=== PATIENT | male | born 1955 | race Caucasian/White ===

== ENCOUNTER 2018-12-12 23:13 | Inpatient (IN) ==
[2018-12-12] MEDS ORDERED: ZOFRAN IV ONE (23:43)
[2018-12-12] MEDS ORDERED: NS 1,000 ML IV ONE ×2 (23:43)
[2018-12-13] MEDS ORDERED: CARDIZEM IV ONE (00:17)
[2018-12-13] MEDS ORDERED: LOPRESSOR IV ONE (00:23)
[2018-12-13 00:30] LABS: BASO# 0.04 X1000 (0.0-0.2); BASO% 0.5 % (0.0-0.8); HEMATOCRIT 44.3 % (42.0-52.0); HEMOGLOBIN 15.7 g/dL (14.0-18.0); IMM GRAN# 0.02 X1000 (0.0-0.04); IMM GRAN% 0.3 % (0.0-0.5); LYMPH# 0.67 X1000 (1.2-3.4); LYMPH% 8.5 % (20.5-51.1); MCH 34.7 PG (27-31); MCHC 35.4 g/dL (33-37); MONO# 0.84 X1000 (0.11-0.59); MONO% 10.6 % (1.7-9.3); MPV 11.1 FL (7.4-10.4); NEUT# 6.35 X1000 (1.4-6.5); NEUT% 80.1 % (42.2-75.2); PLT 141 X1000 (130-400); RBC 4.52 XMIL (4.7-6.1); RDW 12.1 % (11.5-14.5); WBC 7.92 X1000 (4.8-10.8)
[2018-12-13] MEDS ORDERED: MORPHINE IV ONE (00:31)
[2018-12-13] MEDS ORDERED: REGLAN IV ONE (00:37)
[2018-12-13] MEDS ORDERED: MORPHINE ONE (00:41)
[2018-12-13 01:30] LABS: AGAP 33; ALB/GLOB RATIO 1.5; ALBUMIN 4.9 g/dL (3.5-5.0); ALKALINE PHOSPHATASE 164 U/L (32-122); BUN 12 mg/dL (8-22); CALCIUM 9.1 mg/dL (8.8-10.2); CHLORIDE 93 mmol/L (98-107); COSMO 277; CREATININE 0.9 mg/dL (0.7-1.2); ESTIMATED GFR > 60; GLUCOSE 190 mg/dL (70-104); GOT 131 U/L (10-34); GPT 83 U/L (10-44); LIPASE 1530 U/L (13-60); POTASSIUM 3.5 mmol/L (3.5-5.1); SODIUM 136 mmol/L (136-145); TCO2 10 mmol/L (25-35); TOTAL BILIRUBIN 2.47 mg/dL (0.20-1.00); TOTAL PROTEIN 8.1 g/dL (6.3-8.3)
--- NOTE | 2018-12-13 03:10 | PROVIDER DOCUMENTATION ---
This chart was entered by Rajeev Reid Scribe, acting as scribe for Jhonny Vail MD. HPI-Abdominal Pain/GI Problem - General Chief Complaint: Abdominal Pain Stated Complaint: NAUSEA/VOMITING Time Seen by Provider: 12/12/18 23:33 Source: patient Allergies/Adverse Reactions: Patient Allergies Allergy/AdvReac Type Severity Reaction Status Date / Time No Known Allergies Allergy Verified 03/19/17 18:49 Home Medications: Home Medication List Medication Instructions Recorded Confirmed Last Taken Type Aspirin/Acetaminophen [Goody's 1 each PO PRN PRN 03/20/17 03/20/17 03/18/17 06:00 History Body Pain Powder Pkt] Omeprazole [Prilosec] 40 mg PO AC #30 capsule. 03/20/17 Unknown Rx Levetiracetam [Keppra] 750 mg PO BID #60 tab 11/07/18 Unknown Rx Metoprolol Tartrate 25 mg PO DAILY PRN #30 tab 11/07/18 Unknown Rx - History of Present Illness-ABD Nature of Presenting Problems: Pt is a 62 y/o M presents to the ED with abdominal pain for 3 days with N/V for 2 days. He reports he feels his heart racing with some SOB and cough. Pt reports he was her in the ED for his heart racing 2 weeks ago and a seizure. Abdominal Pain Onset Location: reports: generalized abdomen Pain Radiation: reports: no radiation Quality of Pain: reports: cramping Severity in ED: reports: moderate, severe Onset/Duration: reports: 3 days ago Timing: reports: still present, intermittent Activities at Onset: reports: none Exposure to sick contacts?: No Modifying Factors: improves with: nothing Associated Symptoms: reports: cough, nausea, shortness of breath, vomiting. denies: chest pain, diaphoresis, diarrhea, fever/chills, genitourinary problems, sinus congestion/drainage, trouble walking Review of Systems - Adult - REVIEW OF SYSTEMS - ADULT Constitutional: denies: chills, fever Eyes: reports: no symptoms reported Ears, Nose, Mouth & Throat: reports: no symptoms reported Cardiovascular: reports: palpitations. denies: chest pain, edema Respiratory: reports: cough, shortness of breath Gastrointestinal: reports: abdominal pain, nausea, vomiting. denies: diarrhea Genitourinary: denies: dysuria, discharge Musculoskeletal: denies: back pain, neck pain Integumentary: reports: no symptoms reported Neurological: denies: dizziness/vertigo, headache/migraines Psychiatric: denies: anxiety, anti-depressant use Endocrine: reports: no symptoms reported Hematologic/Lymphatic: reports: no symptoms reported Allergic/Immunologic: reports: no symptoms reported All Other Systems: Reviewed and Negative Past History - Adult - PAST MEDICAL HISTORY-ADULT Review of Records: reports: Old Records Reviewed, Nursing Assessment Review, Medications Reviewed Major Childhood Illnesses: reports: denies history Cardiovascular: reports: denies history Respiratory: reports: denies history Gastrointestinal: reports: denies history Genitourinary: reports: denies history Musculoskeletal: reports: denies history Neurological: reports: Seizures/Epilepsy Psychiatric: reports: anxiety Endocrine/Immune: reports: denies history Other Conditions: reports: denies history - PRIOR SURGERIES/PROCEDURES Surgical/Procedure History: reports: orthopedic (extremity) - IMMUNIZATION STATUS Childhood Immunizations: See Nurse Assessment Flu Vaccine: See Nurse Assessment - FAMILY HISTORY Family History: reviewed, not pertinent - SOCIAL HISTORY Smoking: non-smoker, quit greater than 1 year Substance Use: alcohol Alcohol Use Frequency: occasionally Living Situation: family Physical Exam-General - PHYSICAL EXAM-ADULT Initial Vital Signs Reviewed: Yes - CONSTITUTIONAL General Appearance: alert, no apparent distress - EYES Eyes: PERRL/EOMI, pink conjunctivae - HEAD, EARS, NOSE, MOUTH & THROAT HENMT: moist mucous membranes, normal ENT inspection, pharynx normal - NECK Neck: non-tender, full range of motion, supple, normal inspection - RESPIRATORY Respiratory: lungs clear, normal breath sounds, no pleuratic chest pain, no respiratory distress, no accessory muscle use - CARDIOVASCULAR Cardiovascular: normal peripheral pulses, tachycardia - GASTROINTESTINAL (ABDOMEN) Abdominal Exam: normal bowel sounds, soft, tenderness (diffuse) - MUSCULOSKELETAL Back Exam: normal inspection, no CVA tenderness, no vertebral tenderness Extremity: normal range of motion, non-tender, normal gait, normal inspection, no pedal edema - SKIN Integumentary: normal color, normal turgor, warm/dry - NEUROLOGIC Neurologic: grossly normal, no motor/sensory deficits - PSYCHIATRIC Psych/Mental Status: normal mood/affect, normal thought content, normal thought process, oriented x 3 Progress - PLAN OF CARE/RESULTS Result Diagrams: 12/12/18 23:52 12/12/18 23:52 - EKG 1 Time of EKG reading by physician:: 00:12 EKG Read and Signed by:: Jhonny Vail EKG Interpretation (*Must complete 3 of following elements*): Abnormal Rate: 154 Rhythm: supraventricular tachycardia with frquent PVC Comments: Nonspecific ST abnormality - XRAY 1 XRAY Study: Chest Impression: Abnormal (elevated left hemidiaphram) Departure - Departure Date of Disposition Decision: 12/13/18 Time of Disposition Decision: 03:09 DIAGNOSIS: Pancreatitis, acute Qualifiers: Pancreatitis type: unspecified pancreatitis type Acute pancreatitis complication: unspecified Qualified Code(s): K85.90 - Acute pancreatitis without necrosis or infection, unspecified Disposition: ADMITTED INPATIENT 09 Certified Medical Emergency: Emergent Condition: Stable Referrals and Follow-Ups: None,PCP [Primary Care Provider] - - Critical Care Note This patient required my direct & personal management of CC.: No Attestation - Physician/ JOSE R Attestation Patient care was provided by Advanced Practice Provider:: No The physician spent face to face time with patient:: Yes Advanced Practice Provider documentation review:: Supervising physician onsite and consulted in the evaluation and care of this patient. The physician did have a face to face encounter with the patient. This chart was documented by the indicated scribe, (Rajeev Reid Scribe) and accurately reflects the services I performed and decisions made by me, Jhonny Vail MD, as attested by the provider's signature.
[2018-12-13] MEDS ORDERED: DILAUDID IV ONE (03:13)
[2018-12-13] MEDS ORDERED: NS 1,000 ML ONE (03:30)
[2018-12-13] MEDS ORDERED: NS 1,000 ML IV ONE (03:32)
[2018-12-13] MEDS ORDERED: ATIVAN IV ONE (03:49)
[2018-12-13] MEDS ORDERED: SODIUM CHLORIDE 0.9% INJ ONE ×2 (03:49→04:52)
[2018-12-13] MEDS ORDERED: PROTONIX IV ONE (03:49)
[2018-12-13] MEDS ORDERED: LOPRESSOR PO ONE (03:49)
[2018-12-13] MEDS ORDERED: LIBRIUM PO ONE (03:49)
[2018-12-13] MEDS ORDERED: KLOR-CON PO ONE (03:56)
[2018-12-13] MEDS ORDERED: TYLENOL PO PRN (04:52)
[2018-12-13] MEDS: LOVENOX SUBQ SCH (04:52)
[2018-12-13] MEDS ORDERED: ZOFRAN IV PRN (04:52)
[2018-12-13] MEDS: SODIUM CHLORIDE 0.9% INJ SCH (05:00)
[2018-12-13] MEDS: PROTONIX IV SCH (05:00)
--- NOTE | 2018-12-13 05:07 | HISTORY AND PHYSICAL ---
PRIMARY CARE PHYSICIAN: No documented primary care physician. REASON FOR ADMISSION: Shortness of breath and palpitations last night and 1-week history of worsening abdominal pain, nausea and vomiting. HISTORY OF PRESENT ILLNESS: Mr. Raghav Ramirez is a 62-year-old male with past medical history of seizures (type unknown), and prior history of food impaction. He comes in today complaining of a 1-week history of burning abdominal pain. He said it initially intermittent, radiating to his back, but over the last couple of days it has been constant. There has been associated vomiting, about 3 times a day on average. Yesterday he said that he was vomiting coffee grounds, but no surinder blood. He came in primarily because he thought his heart was racing and he could not breathe, and felt he "was having a heart attack." On arrival his heart rate was in the 150s. He was given fluids, Cardizem and metoprolol and his heart rate is in the "one teens," between 100 to 115. He has also been given some pain medication and nausea medication and says he feels is breathing and palpitations have improved. Denies any chest pain during this. He did feel a little lightheaded and a little diaphoretic when this occurred. The patient denies any fever or chills, no genitourinary complaints, no polyuria or polydipsia. No arthralgia or rash. No focal neurological complaints. No weight loss. He reports that his last drink was just under a week ago and says his oral intake has significantly diminished over the last couple of days. He says this is primarily due to the fact that whenever he tries to drink or eat he throws up. The aforementioned pain had no modifying factors. REVIEW OF SYSTEMS: A 12-systems review was performed; positive findings noted in the HPI. ALLERGIES: No known documented allergies. MEDICATIONS: Keppra 750 mg b.i.d., metoprolol 25 mg, omeprazole 40 mg a day, aspirin and Tylenol 1 p.r.n. FAMILY HISTORY: Negative for heart disease, diabetes or epilepsy. SOCIAL HISTORY: He usually drinks about 6 beers a day. Lives with his girlfriend. No smoking or illicit drug use. SURGICAL HISTORY: Had left elbow ORIF. DATA: White count 7000, hemoglobin 15, hematocrit 44, platelets 141,000, 80% neutrophils. Potassium is 3.5, BUN 12, creatinine 0.9, glucose 190. Total bilirubin is 2.4, up from 1.5. AST 131, ALT 83, alkaline phosphatase 164. Troponin is negative. Lactate is 2.7, lipase is 1500. CT scan of the abdomen and pelvis confirms acute inflammatory changes of the pancreas. Chest film: Slightly raised left hemidiaphragm, borderline cardiomegaly, poor inspiratory effort. EKG shows SVT with frequent PVCs. PHYSICAL EXAMINATION: GENERAL APPEARANCE: Middle-aged man who is not in acute distress. He alert and oriented x3 with normal mood and affect. HEAD AND EYES: Head is normocephalic, atraumatic. Eyes: PERRLA, EOMI. He is not icteric and not pale. VITAL SIGNS: Blood pressure is 115/110, pulse 109, respirations 20, temperature 97.9. His O2 saturation ENT: Oropharyngeal exam is grossly normal except for mild xerostomia. No pharyngeal exudates. There is some cyanosis. NECK: Supple. No JVD, carotid bruits or thyromegaly. CHEST: Clear when auscultated with good air entry in both lung mena. CARDIOVASCULAR: First and second heart sounds heard. No gallops, murmurs or rubs. Rhythm is regular. ABDOMEN: Full, soft with epigastric tenderness, but no peritoneal signs. Bowel sounds are slightly hypoactive. RECTAL: Exam is deferred. EXTREMITIES: The patient has fine tremors when his hands are outstretched. Decreased pulse volumes in all extremities. Rhythm is regular, symmetrical. No edema, clubbing or peripheral cyanosis. NEUROLOGIC: No gross focal deficits. SKIN: Intact with no breakdown, lesion or erythema. MUSCULAR: Grossly normal. ASSESSMENT: 1. Alcoholic pancreatitis. 2. Seizure disorder probably related to alcohol withdrawal. 3. Alcoholic liver disease. 4. Supraventricular tachycardia secondary to probable volume depletion, electrolyte derangement and beta jihan withdrawal. PLAN: The patient will be aggressively hydrated due to decreased intravascular volume. Will treat the patient symptomatically regarding his pain and vomiting. IV PPIs will be administered on account of coffee ground emesis for presumed acute gastritis. Patient's beta blockers will be instated on account of SVTs. Electrolytes will also be replaced. The patient will be treated with thiamine daily. Serial lipase levels to be drawn and correlated with clinical picture. Alcohol cessation was reiterated and I explained the fact that all his symptomatology could be related to his alcohol abuse. The patient will be on p.r.n. Ativan and we need to watch closely for DTs, although the patient emphatically states that his last drink was a week ago, even though he is mildly tremulous. He also denies any hallucinations. If the patient's tremors worsen, he will probably need to be on a scheduled Librium dosing. DVT prophylaxis will also be instituted. cc: Oscar Garza MD
[2018-12-13] MEDS ORDERED: SODIUM CHLORIDE 0.9% INJ SCH (05:30)
[2018-12-13 05:34] LABS: MAGNESIUM 2.2 mg/dL (1.5-2.7); PHOSPHORUS 3.5 mg/dL (2.7-4.5)
[2018-12-13] MEDS: THIAMINE 100 MG in NS 50 ML IV SCH ×2 (06:30→09:00)
[2018-12-13] MEDS: POTASSIUM CHLORIDE 10 MEQ in NS 1,000 ML IV SCH ×3 (06:49→15:53)
[2018-12-13] MEDS: DILAUDID IV PRN ×4 (06:50→20:17)
[2018-12-13] MEDS: COMPAZINE IV PRN ×2 (06:51→12:30)
[2018-12-13] MEDS: ATIVAN IV PRN ×4 (06:51→20:17)
--- NOTE | 2018-12-13 07:01 | Diag Imaging Result Doc PS360 ---
EXAM: CHEST-1 VIEW 12/12/2018 HISTORY: sob TECHNIQUE: AP portable at 1259 COMMENT: There is subsegmental atelectasis in the left base which has improved slightly since 11/07/2018. The left hemidiaphragm is still elevated. IMPRESSION: Atelectasis on the left. Electronically signed by Carlos Alberto Coates 12/13/2018 6:58 AM
[2018-12-13 07:53] LABS: BASO# 0.01 X1000 (0.0-0.2); BASO% 0.2 % (0.0-0.8); HEMATOCRIT 42.5 % (42.0-52.0); HEMOGLOBIN 14.1 g/dL (14.0-18.0); IMM GRAN# 0.02 X1000 (0.0-0.04); IMM GRAN% 0.4 % (0.0-0.5); LYMPH# 0.46 X1000 (1.2-3.4); LYMPH% 9.1 % (20.5-51.1); MCH 33.8 PG (27-31); MCHC 33.2 g/dL (33-37); MCV 101.9 FL (81-99); MONO# 0.43 X1000 (0.11-0.59); MONO% 8.5 % (1.7-9.3); MPV 9.9 FL (7.4-10.4); NEUT# 4.13 X1000 (1.4-6.5); NEUT% 81.8 % (42.2-75.2); PLT 99 X1000 (130-400); RBC 4.17 XMIL (4.7-6.1); RDW 12.1 % (11.5-14.5); WBC 5.05 X1000 (4.8-10.8)
--- NOTE | 2018-12-13 07:57 | EKG Report ---
Test Performed on : 12/13/2018 00:12:06 AM Test Reason : tachycardia Blood Pressure : / mmHG Vent. Rate : 154 BPM Atrial Rate : 153 BPM P-R Int : 000 ms QRS Dur : 078 ms QT Int : 316 ms P-R-T Axes : 000 007 046 degrees QTc Int : 506 ms Supraventricular tachycardia. with frequent premature ventricular complexes. Nonspecific ST abnormality Abnormal ECG When compared with ECG of 07-NOV-2018 13:28, (Unconfirmed) Vent. rate has increased BY 51 BPM Unconfirmed Result
[2018-12-13 08:10] LABS: AGAP 21; ALB/GLOB RATIO 1.4; ALBUMIN 3.8 g/dL (3.5-5.0); ALKALINE PHOSPHATASE 123 U/L (32-122); BUN 9 mg/dL (8-22); CALCIUM 8.1 mg/dL (8.8-10.2); CHLORIDE 104 mmol/L (98-107); COSMO 283; CREATININE 0.7 mg/dL (0.7-1.2); ESTIMATED GFR > 60; GLUCOSE 147 mg/dL (70-104); GOT 82 U/L (10-34); GPT 58 U/L (10-44); POTASSIUM 3.6 mmol/L (3.5-5.1); SODIUM 141 mmol/L (136-145); TCO2 16 mmol/L (25-35); TOTAL BILIRUBIN 2.57 mg/dL (0.20-1.00); TOTAL PROTEIN 6.6 g/dL (6.3-8.3)
--- NOTE | 2018-12-13 08:27 | Diag Imaging Result Doc PS360 ---
EXAM: CT ABD/PELVIS W/IV CONT ONLY INDICATION: colitis TECHNIQUE: This exam was performed using automated exposure control, adjustment of mA or kV according to patient size, and/or use of iterative reconstruction technique. COMPARISON: None. FINDINGS: There is elevation of the left hemidiaphragm and there is associated atelectasis at the left lung base. There is a 4 mm noncalcified nodule in the right lower lobe, statistically most likely a noncalcified granuloma. The distal esophageal wall is thickened circumferentially there are a couple of subcentimeter adjacent shotty lymph nodes. This probably represents esophagitis. However, malignancy cannot completely be excluded. Consider evaluation with EGD. There are calcified granulomata throughout the spleen. There is severe hepatic steatosis. There is a 1.1 cm enhancing nodule in the left hepatic lobe on image 49 of series 3 that very likely represents a flash filling hemangioma as it mirrors the enhancement of the portal vein. The gallbladder is unremarkable. There is no evidence of biliary dilatation. There is extensive inflammatory stranding surrounding the pancreas consistent with acute pancreatitis. There is no loculated fluid to indicate peripancreatic abscess. There is nothing to suggest pancreatic necrosis. There is no portal vein or splenic vein thrombosis. There is no pseudocyst. The adrenal glands, kidneys, and urinary bladder are grossly unremarkable. The appendix is normal. The remainder of the GI tract is grossly unremarkable. IMPRESSION: 1.Acute pancreatitis. 2.Mild thickening of the distal esophageal wall that probably represents esophagitis. Please see the above discussion. 3.Severe hepatic steatosis with a 1.1 cm left hepatic lobe enhancing nodule that very likely represents a flash filling hemangioma. Electronically signed by Caio Finnegan 12/13/2018 8:24 AM
[2018-12-13] MEDS: LOPRESSOR PO SCH ×2 (09:00→20:10)
[2018-12-13] MEDS: KEPPRA PO SCH ×2 (09:00→20:10)
[2018-12-14] MEDS: POTASSIUM CHLORIDE 10 MEQ in NS 1,000 ML IV SCH ×3 (00:25→15:29)
[2018-12-14] MEDS: ATIVAN IV PRN (00:37)
[2018-12-14] MEDS: DILAUDID IV PRN ×8 (00:37→22:07)
[2018-12-14] MEDS: SODIUM CHLORIDE 0.9% INJ SCH (04:13)
[2018-12-14] MEDS: PROTONIX IV SCH (04:13)
[2018-12-14] MEDS: LOVENOX SUBQ SCH (04:14)
--- NOTE | 2018-12-14 07:32 | EKG Report ---
Test Performed on : 12/13/2018 8:47:29 PM Test Reason : Rhythm change Blood Pressure : / mmHG Vent. Rate : 128 BPM Atrial Rate : 128 BPM P-R Int : 120 ms QRS Dur : 074 ms QT Int : 386 ms P-R-T Axes : 000 001 028 degrees QTc Int : 563 ms Sinus tachycardia. Nonspecific ST and T wave abnormality Abnormal ECG When compared with ECG of 13-DEC-2018 00:12, (Unconfirmed) premature ventricular complexes. are no longer present Unconfirmed Result
[2018-12-14] MEDS: KEPPRA PO SCH ×2 (08:31→20:11)
[2018-12-14] MEDS: THIAMINE 100 MG in NS 50 ML IV SCH (08:31)
[2018-12-14] MEDS: LOPRESSOR PO SCH ×2 (08:32→20:11)
[2018-12-14] MEDS: COMPAZINE IV PRN ×2 (12:56→20:11)
[2018-12-14] MEDS ORDERED: NS 1,000 ML IV SCH (13:15)
--- NOTE | 2018-12-14 13:51 | PROGRESS NOTE ---
DATE: 12/14/2018 SUBJECTIVE: The patient is resting comfortably in bed. OBJECTIVE: Vital signs: Vital signs are as follows: Temperature 98.9 degrees, pulse 113, respirations 18, blood pressure is 130/102, oxygenation is 95%. HEENT: Atraumatic, normocephalic. Cardiovascular system: S1, S2. Respiratory system: Has evidence of good air entry bilaterally. Abdomen: Soft. No significant tenderness noted. No masses felt. Extremities: No evidence of edema. Central nervous system: No obvious neurologic focal deficit noted. LABS: Labs are as follows: Lipase level is 514. ASSESSMENT AND PLAN: 1. Acute pancreatitis. Maintain patient on nothing by mouth, except for clear liquids. Maintain him on antiemetics, as well as analgesic agent. Also, place him on proton pump inhibitor. Continue to follow up on the patient's clinical progression, advance diet as needed. 2. Alcoholism. Maintain patient on delirium tremens prophylaxis. Place him on thiamine folic acid, as well as multivitamin. Check magnesium and phosphorus level. Replace those if needed. Check CPK level as well. 3. Alcoholic liver disease. Follow up on patient's liver function test. We will also check a hepatitis panel, as well as abdominal ultrasound. 4. Supraventricular tachycardia. Correct electrolyte abnormalities. Follow up on serial enzymes. Maintain patient on rate-controlling agent. 5. Seizure disorder. Continue antiepileptic drug. Maintain patient on seizure precaution. 6. Deep vein thrombosis prophylaxis. Sequential compression devices. 7. Gastrointestinal prophylaxis. Proton pump inhibitor. cc: Suraj Porter MD
--- NOTE | 2018-12-14 16:32 | Diag Imaging Result Doc PS360 ---
EXAM: US ABDOMEN-COMPLETE 12/14/2018 HISTORY: ABN LFS TECHNIQUE: Abdominal ultrasound COMMENT: The study is somewhat suboptimal due to the patient's body habitus. The liver is hyperechoic. The gallbladder is clear and nontender. There is antegrade flow in the portal vein. The kidneys are without evidence of hydronephrosis or mass. The pancreas aorta and inferior vena cava are not well demonstrated. There is no evidence of biliary dilatation the common bile duct measuring 5 mm. The spleen is not visualized. IMPRESSION: Mild hepatic steatosis. Limited study. No evidence of acute disease. Electronically signed by Carlos Alberto Coates 12/14/2018 4:30 PM
[2018-12-14] MEDS: FOLIC ACID PO SCH (16:38)
[2018-12-14] MEDS: CENTRUM CHEWABLE PO SCH (16:38)
[2018-12-15] MEDS: ATIVAN IV PRN ×2 (00:16→02:54)
[2018-12-15] MEDS: DILAUDID IV PRN ×3 (00:58→20:59)
[2018-12-15] MEDS: POTASSIUM CHLORIDE 10 MEQ in NS 1,000 ML IV SCH ×3 (00:59→22:48)
[2018-12-15] MEDS ORDERED: ATIVAN IV ONE (03:00)
[2018-12-15] MEDS: PHENOBARBITAL IV PRN ×2 (03:45→07:04)
[2018-12-15 05:52] LABS: BASO# 0.01 X1000 (0.0-0.2); BASO% 0.1 % (0.0-0.8); EOS# 0.02 X1000 (0.0-0.7); EOS% 0.3 % (0.0-10.0); HEMATOCRIT 35.5 % (42.0-52.0); LYMPH% 17.4 % (20.5-51.1); MCH 33.7 PG (27-31); MCHC 33.8 g/dL (33-37); MCV 99.7 FL (81-99); MONO# 0.64 X1000 (0.11-0.59); MONO% 8.6 % (1.7-9.3); MPV 11.3 FL (7.4-10.4); NEUT# 5.51 X1000 (1.4-6.5); NEUT% 73.6 % (42.2-75.2); PLT 103 X1000 (130-400); RBC 3.56 XMIL (4.7-6.1); RDW 11.9 % (11.5-14.5); WBC 7.48 X1000 (4.8-10.8)
[2018-12-15] MEDS: LOVENOX SUBQ SCH (05:57)
[2018-12-15] MEDS: PROTONIX IV SCH (05:57)
[2018-12-15] MEDS: SODIUM CHLORIDE 0.9% INJ SCH (05:58)
[2018-12-15 06:38] LABS: AGAP 18; ALB/GLOB RATIO 1.2; ALBUMIN 3.5 g/dL (3.5-5.0); ALKALINE PHOSPHATASE 110 U/L (32-122); BUN 7 mg/dL (8-22); CALCIUM 8.8 mg/dL (8.8-10.2); CHLORIDE 102 mmol/L (98-107); COSMO 275; CREATININE 0.5 mg/dL (0.7-1.2); ESTIMATED GFR > 60; GLUCOSE 84 mg/dL (70-104); GOT 49 U/L (10-34); GPT 33 U/L (10-44); MAGNESIUM 1.9 mg/dL (1.5-2.7); PHOSPHORUS 1.1 mg/dL (2.7-4.5); POTASSIUM 2.9 mmol/L (3.5-5.1); SODIUM 139 mmol/L (136-145); TCO2 19 mmol/L (25-35); TOTAL BILIRUBIN 2.41 mg/dL (0.20-1.00); TOTAL PROTEIN 6.4 g/dL (6.3-8.3)
[2018-12-15] MEDS: KEPPRA PO SCH ×2 (09:05→20:58)
[2018-12-15] MEDS: LOPRESSOR PO SCH ×2 (09:05→20:58)
[2018-12-15] MEDS: THIAMINE 100 MG in NS 50 ML IV SCH (09:05)
[2018-12-15] MEDS: FOLIC ACID PO SCH (09:05)
[2018-12-15] MEDS: CENTRUM CHEWABLE PO SCH (09:06)
[2018-12-15] MEDS ORDERED: POTASSIUM CHLORIDE 60 MEQ in NS 500 ML IV ONE (15:30)
--- NOTE | 2018-12-15 15:30 | PROGRESS NOTE ---
DATE: 12/15/2018 INTERVAL HISTORY: The patient with no further vomiting. Occasional mild nausea. Tolerating occasional sips of water well so far. Still complaining of abdominal pain. Still some tachycardia but no tremulousness, hallucinations or other sign of worsening alcohol withdrawal. REVIEW OF SYSTEMS: Twelve -point review of systems negative except as interval history. LABS: WBC 7.4, hemoglobin 12, hematocrit 35.5, platelets 103,000, sodium 139, potassium 2.9, bicarb 19, BUN 7, creatinine 0.5, phosphorus 1.1, magnesium 1.9, total bilirubin 2.4, AST 49, ALT 33, alkaline phosphatase 110. Troponin negative x4, lipase 116, TSH 1.7. VITALS: T-max 99.7 degrees, pulse 103, respirations 17, blood pressure 137/97, O2 saturation 97% on room air. OBJECTIVE: General: No acute distress. Vitals as above. HEENT: Normocephalic, atraumatic. Moist mucous membranes, no cervical adenopathy . Cardiovascular: Minimally tachycardic but regular. No murmurs noted. Pulmonary: Clear to auscultation bilaterally. No wheeze, rales, rhonchi. Abdomen: Soft, nontender on exam, bowel sounds positive. Extremities: Peripheral pulses intact. No clubbing, cyanosis or edema . Neurologic: Cranial nerves grossly intact. No focal identified. No significant tremulousness at this point. Psychiatric: Normal mood and affect. Awake, alert, oriented x3. No hallucinations noted. Skin: No new rashes or lesions identified. ASSESSMENT AND PLAN: 1. Acute pancreatitis likely alcoholic. Lipase trending down. No further vomiting. Patient still complaining of pain but nontender at this point. Will advance diet and begin transitioning to p.o. pain medicines. Depending on how he does with liquids may be able to advance diet to solids tomorrow. 2. Alcoholic fatty liver disease, patient with severe fatty liver on imaging. No definite cirrhosis but given elevated bilirubin suspect that he has at least some cirrhosis . AST, ALT and alkaline phosphatase are trending down so some aspect of alcoholic hepatitis appears to be improving. Hepatitis panel pending. 3. Alcohol abuse and withdrawal. Patient with some intermittent frequent tachycardia but no other signs of major withdrawal. No hallucinations or severe tremulousness . 4. Hypokalemia, hypophosphatemia, will replete those and monitor. 5. Possible seizure disorder uncertain if patient has actual seizure disorder or has previously had seizures with alcohol withdrawal but will continue seizure medication. No seizure activity on this admission thus far. 6. Deep vein thrombosis prophylaxis SCDs. 7. Likely esophagitis. Patient with imaging findings concerning for esophagitis. Likely alcohol related. Patient with no hematemesis, hematochezia or melena. Has had slight decline in blood counts but may be related to fluids he is getting. Will likely need outpatient evaluation by GI at some point but if blood counts continue trend down or any sign of overt bleeding develops then will consult GI while he is here.
[2018-12-15] MEDS: NORCO-10 PO PRN (17:25)
[2018-12-15] MEDS: POTASSIUM PHOSPHATE 40 MMOL in NS 250 ML IV ONE ×2 (20:58→21:31)
[2018-12-16] MEDS: NORCO-10 PO PRN ×4 (00:21→19:28)
[2018-12-16] MEDS: DILAUDID IV PRN ×4 (01:44→20:44)
[2018-12-16] MEDS: PROTONIX IV SCH (05:13)
[2018-12-16] MEDS: LOVENOX SUBQ SCH (05:13)
[2018-12-16] MEDS: SODIUM CHLORIDE 0.9% INJ SCH (05:13)
[2018-12-16 05:32] LABS: BASO# 0.02 X1000 (0.0-0.2); BASO% 0.3 % (0.0-0.8); EOS# 0.11 X1000 (0.0-0.7); EOS% 1.6 % (0.0-10.0); HEMATOCRIT 34.8 % (42.0-52.0); HEMOGLOBIN 11.8 g/dL (14.0-18.0); IMM GRAN# 0.02 X1000 (0.0-0.04); IMM GRAN% 0.3 % (0.0-0.5); LYMPH# 1.24 X1000 (1.2-3.4); LYMPH% 17.8 % (20.5-51.1); MCH 33.9 PG (27-31); MCHC 33.9 g/dL (33-37); MONO# 0.93 X1000 (0.11-0.59); MONO% 13.4 % (1.7-9.3); MPV 10.6 FL (7.4-10.4); NEUT# 4.64 X1000 (1.4-6.5); NEUT% 66.6 % (42.2-75.2); PLT 146 X1000 (130-400); RBC 3.48 XMIL (4.7-6.1); RDW 12.2 % (11.5-14.5); WBC 6.96 X1000 (4.8-10.8)
[2018-12-16 05:53] LABS: AGAP 15; ALB/GLOB RATIO 1.1; ALBUMIN 3.3 g/dL (3.5-5.0); ALKALINE PHOSPHATASE 135 U/L (32-122); BUN 6 mg/dL (8-22); CALCIUM 8.4 mg/dL (8.8-10.2); CHLORIDE 102 mmol/L (98-107); COSMO 273; CREATININE 0.5 mg/dL (0.7-1.2); ESTIMATED GFR > 60; GLUCOSE 92 mg/dL (70-104); GOT 49 U/L (10-34); GPT 28 U/L (10-44); POTASSIUM 3.1 mmol/L (3.5-5.1); SODIUM 138 mmol/L (136-145); TCO2 21 mmol/L (25-35); TOTAL BILIRUBIN 1.57 mg/dL (0.20-1.00); TOTAL PROTEIN 6.3 g/dL (6.3-8.3)
[2018-12-16] MEDS: POTASSIUM CHLORIDE 10 MEQ in NS 1,000 ML IV SCH ×2 (07:27→19:47)
[2018-12-16] MEDS: KEPPRA PO SCH ×2 (09:24→20:43)
[2018-12-16] MEDS: FOLIC ACID PO SCH (09:24)
[2018-12-16] MEDS: LOPRESSOR PO SCH (09:24)
[2018-12-16] MEDS: CENTRUM CHEWABLE PO SCH (09:25)
[2018-12-16] MEDS: THIAMINE 100 MG in NS 50 ML IV SCH (09:25)
[2018-12-16 10:51] LABS: HEPATITIS PROFILE ACUTE SEE COMMENTS
--- NOTE | 2018-12-16 15:06 | PROGRESS NOTE ---
DATE: 12/16/2018 SUBJECTIVE: Patient resting comfortable in bed. Not in any obvious distress. OBJECTIVE: Vital signs: Temperature [*] pulse is 111, respiratory 18, blood pressure 122/87, oxygen 100%. HEENT: Atraumatic, normocephalic. Cardiovascular: S1, S2. Respiratory: Has evidence of good air entry bilaterally. Abdomen: Soft, nontender, no masses felt. Extremities: No evidence of edema. Central nervous system: No obvious focal deficit noted. LABORATORY DATA: WBCs 6.96, hematocrit is 34.8 with a platelet count of 146,000. Sodium is 138, potassium 3.1, chloride is 102, bicarb 21, BUN [*], creatinine 0.5. ASSESSMENT AND PLAN: 1. Acute pancreatitis. Continue current diet regimen. Maintain patient antiemetics as well as PPI. 2. Alcoholism. Maintain patient on delirium tremens prophylaxis, place him on thiamine, folic acid as well as multivitamin. Replace potassium and phosphorus level. 3. Alcoholic liver disease. Follow up on hepatic function test. 4. Supraventricular tachycardia this seems to have resolved. 5. Seizure disorder. Continue antiepileptic drug, maintain patient on seizure precaution. 6. Deep vein thrombosis prophylaxis SCD. 7. Gastrointestinal prophylaxis PPI. cc: Suraj Porter MD
[2018-12-16] MEDS: POTASSIUM CHLORIDE 20 MEQ/SWI 20 MEQ/100 ML IVPB IV SCH ×2 (17:54→20:10)
[2018-12-16] MEDS: NEUTRA-PHOS PO SCH ×2 (18:00→20:44)
[2018-12-17] MEDS: NORCO-10 PO PRN ×4 (01:31→18:57)
[2018-12-17] MEDS: DILAUDID IV PRN ×4 (02:33→20:53)
[2018-12-17] MEDS: ATIVAN IV PRN (02:33)
[2018-12-17] MEDS: POTASSIUM CHLORIDE 10 MEQ in NS 1,000 ML IV SCH ×2 (04:48→15:34)
[2018-12-17] MEDS: LOPRESSOR PO SCH ×3 (04:50→20:55)
[2018-12-17] MEDS: PROTONIX IV SCH (06:48)
[2018-12-17] MEDS: LOVENOX SUBQ SCH (06:48)
[2018-12-17] MEDS: SODIUM CHLORIDE 0.9% INJ SCH (06:49)
[2018-12-17 07:26] LABS: BASO# 0.02 X1000 (0.0-0.2); BASO% 0.4 % (0.0-0.8); EOS% 1.8 % (0.0-10.0); HEMATOCRIT 34.1 % (42.0-52.0); HEMOGLOBIN 11.5 g/dL (14.0-18.0); IMM GRAN# 0.03 X1000 (0.0-0.04); IMM GRAN% 0.5 % (0.0-0.5); LYMPH% 21.1 % (20.5-51.1); MCH 33.7 PG (27-31); MCHC 33.7 g/dL (33-37); MONO# 0.98 X1000 (0.11-0.59); MONO% 17.2 % (1.7-9.3); MPV 10.3 FL (7.4-10.4); NEUT# 3.37 X1000 (1.4-6.5); PLT 186 X1000 (130-400); RBC 3.41 XMIL (4.7-6.1); RDW 12.3 % (11.5-14.5)
[2018-12-17 07:43] LABS: AGAP 14; BUN 4 mg/dL (8-22); CALCIUM 8.6 mg/dL (8.8-10.2); CHLORIDE 101 mmol/L (98-107); COSMO 274; CREATININE 0.4 mg/dL (0.7-1.2); ESTIMATED GFR > 60; GLUCOSE 93 mg/dL (70-104); LIPASE 152 U/L (13-60); MAGNESIUM 1.9 mg/dL (1.5-2.7); PHOSPHORUS 1.7 mg/dL (2.7-4.5); POTASSIUM 3.1 mmol/L (3.5-5.1); SODIUM 139 mmol/L (136-145); TCO2 24 mmol/L (25-35)
[2018-12-17] MEDS: KEPPRA PO SCH ×2 (08:27→20:54)
[2018-12-17] MEDS: NEUTRA-PHOS PO SCH ×4 (08:27→20:54)
[2018-12-17] MEDS: THIAMINE 100 MG in NS 50 ML IV SCH (08:27)
[2018-12-17] MEDS: FOLIC ACID PO SCH (08:29)
[2018-12-17] MEDS: CENTRUM CHEWABLE PO SCH (09:30)
[2018-12-17] MEDS: POTASSIUM CHLORIDE 20 MEQ/SWI 20 MEQ/100 ML IVPB IV SCH ×2 (12:58→17:15)
--- NOTE | 2018-12-17 13:21 | PROGRESS NOTE ---
DATE: 12/17/2018 SUBJECTIVE: The patient resting comfortably in bed. Not in any obvious distress. OBJECTIVE: Vital signs: Temperature is 98.6 degrees, pulse is 93, respiratory rate 16, blood pressure is 134/94, oxygen saturation is 98%. HEENT: He is atraumatic, normocephalic. Cardiovascular: S1, S2. Respiratory system: Has evidence of good air entry bilaterally. Abdomen: Soft, nontender. No masses felt. Extremities: No evidence of edema. Central nervous system: No obvious focal deficits. LABORATORY DATA: WBC is 5.7, hematocrit is 34.1, with a platelet count of 186,000. Sodium is 139, potassium 3.1, chloride is 101, bicarb 24, BUN is 4, creatinine 0.4. Lipase level is 152. ASSESSMENT AND PLAN: 1. Acute pancreatitis. The patient's lipase levels seem to be showing an upward trend. Will scale done on his diet and put him back on a clear liquid diet. We will continue to maintain him on antiemetics as well as analgesic agent along with intravenous fluids and also proton pump inhibitor. We will follow up on pancreatic function test. 2. Alcoholism. Maintain him on delirium tremens prophylaxis. Continue thiamine, folic acid, as well as multivitamin. Replace electrolytes as needed, especially potassium as well as phosphorus levels. 3. Alcoholic liver disease. Follow up on liver function tests. The patient understands the importance of abstinence from alcohol. 4. Supraventricular tachycardia. Resolved. 5. Seizure disorder. Continue antiepileptic drugs as well as maintain the patient on seizure precaution. 6. Deep vein thrombosis prophylaxis. Sequential compression devices. 7. Gastrointestinal prophylaxis. Proton pump inhibitor. cc: Suraj Porter MD
[2018-12-17] MEDS ORDERED: VITAMIN D PO SCH (22:15)
[2018-12-18] MEDS: NORCO-10 PO PRN ×4 (00:51→18:48)
[2018-12-18] MEDS: POTASSIUM CHLORIDE 10 MEQ in NS 1,000 ML IV SCH ×2 (01:11→10:54)
[2018-12-18] MEDS: DILAUDID IV PRN ×3 (02:55→19:30)
[2018-12-18] MEDS: KEPPRA PO SCH ×3 (03:00→20:52)
[2018-12-18] MEDS: PROTONIX IV SCH (06:41)
[2018-12-18] MEDS: SODIUM CHLORIDE 0.9% INJ SCH (06:41)
[2018-12-18] MEDS: LOVENOX SUBQ SCH (06:41)
[2018-12-18 07:29] LABS: BASO# 0.04 X1000 (0.0-0.2); BASO% 0.8 % (0.0-0.8); HEMATOCRIT 34.7 % (42.0-52.0); HEMOGLOBIN 11.9 g/dL (14.0-18.0); IMM GRAN# 0.04 X1000 (0.0-0.04); IMM GRAN% 0.8 % (0.0-0.5); LYMPH# 1.06 X1000 (1.2-3.4); LYMPH% 21.4 % (20.5-51.1); MCH 33.9 PG (27-31); MCHC 34.3 g/dL (33-37); MCV 98.9 FL (81-99); MONO# 1.12 X1000 (0.11-0.59); MONO% 22.6 % (1.7-9.3); NEUT% 52.4 % (42.2-75.2); PLT 214 X1000 (130-400); RBC 3.51 XMIL (4.7-6.1); RDW 12.5 % (11.5-14.5); WBC 4.96 X1000 (4.8-10.8)
[2018-12-18 07:41] LABS: AGAP 13; ALB/GLOB RATIO 1.1; ALBUMIN 3.3 g/dL (3.5-5.0); ALKALINE PHOSPHATASE 182 U/L (32-122); BUN 3 mg/dL (8-22); CALCIUM 8.8 mg/dL (8.8-10.2); CHLORIDE 100 mmol/L (98-107); COSMO 271; CREATININE 0.4 mg/dL (0.7-1.2); ESTIMATED GFR > 60; GLUCOSE 101 mg/dL (70-104); GOT 52 U/L (10-34); GPT 23 U/L (10-44); LIPASE 160 U/L (13-60); MAGNESIUM 1.9 mg/dL (1.5-2.7); PHOSPHORUS 2.2 mg/dL (2.7-4.5); POTASSIUM 3.4 mmol/L (3.5-5.1); SODIUM 137 mmol/L (136-145); TCO2 24 mmol/L (25-35); TOTAL BILIRUBIN 1.18 mg/dL (0.20-1.00); TOTAL PROTEIN 6.3 g/dL (6.3-8.3)
[2018-12-18 07:58] LABS: LYMPHS 23 % (21-51); MONO 20 % (1-9); SEGS 57 % (42-75)
[2018-12-18] MEDS: CENTRUM CHEWABLE PO SCH (10:50)
[2018-12-18] MEDS: THIAMINE 100 MG in NS 50 ML IV SCH (10:51)
[2018-12-18] MEDS: NEUTRA-PHOS PO SCH (10:51)
[2018-12-18] MEDS: LOPRESSOR PO SCH ×2 (10:52→20:53)
[2018-12-18] MEDS: FOLIC ACID PO SCH (10:53)
--- NOTE | 2018-12-18 14:06 | PROGRESS NOTE ---
DATE: 12/18/2018 SUBJECTIVE: This morning Mr. Ramirez refers to be doing fairly okay. He still has some pain in the mid epigastrium. He said he has been able to tolerate his diet, and he wants some real food. OBJECTIVELY: Vitals: Blood pressure is 138/84, pulse is 104, respirations 18, temperature 98.0 degrees. General: Mr. Ramirez is a 62-year-old male. He is in bed. He is not in any cardiopulmonary distress. Mucosa is pink and moist. Anicteric. Acyanotic. Neck is supple. Chest was clear to auscultation. Cardiovascular: Regular rate and rhythm. Abdomen is soft. There is some mild tenderness in the epigastrium. No rebound or guarding. Extremities: No pedal edema. Central nervous system: Patient is awake, alert, and oriented. DIAGNOSTIC STUDIES: WBC is 4.96, hemoglobin is 11.9, platelet count of 214,000. Chemistry is also reviewed unremarkable, except for potassium of 3.4 and mildly elevated liver enzymes. Vitamin D level yesterday was 7.5. I have also reviewed his imaging studies. A CT scan on admission did show acute pancreatitis and possible distal esophageal wall thickening, severe hepatic steatosis. An ultrasound was unremarkable. ASSESSMENT: 1. Acute pancreatitis, likely due to alcohol abuse. Imaging studies, including an ultrasound, do not show any gallbladder pathology. 2. Alcohol abuse. Patient has been advised. He is currently on medications to prevent withdrawal. 3. Alcohol-induced hepatitis. 4. Supraventricular tachycardia on presentation, resolved. 5. History of seizure disorder. 6. Vitamin D deficiency. We will continue to replace. 7. Hypokalemia. He is getting replacement. PLAN: In general Mr. Ramirez is doing fairly okay. Abdominal discomfort is improving. The patient wants some real food, so we are going to discontinue the clears and put him on a GI soft and see if he is able to tolerate that. We will also get Physical Therapy to start working with him. I have explained the plan to Mr. Ramirez and the sister who was at the bedside at the time of the encounter. cc: Derick Casiano MD
[2018-12-19] MEDS: NORCO-10 PO PRN ×3 (00:58→13:14)
[2018-12-19] MEDS: DILAUDID IV PRN ×2 (03:47→12:11)
[2018-12-19] MEDS: POTASSIUM CHLORIDE 10 MEQ in NS 1,000 ML IV SCH ×2 (03:47→12:14)
[2018-12-19] MEDS: LOVENOX SUBQ SCH (06:40)
[2018-12-19] MEDS: SODIUM CHLORIDE 0.9% INJ SCH (06:41)
[2018-12-19] MEDS: PROTONIX IV SCH (06:41)
[2018-12-19] MEDS: KEPPRA PO SCH (09:55)
[2018-12-19] MEDS: FOLIC ACID PO SCH (09:55)
[2018-12-19] MEDS: LOPRESSOR PO SCH (09:55)
[2018-12-19] MEDS: THIAMINE 100 MG in NS 50 ML IV SCH (09:56)
[2018-12-19] MEDS: CENTRUM CHEWABLE PO SCH (09:57)
[2018-12-19 11:31] VITALS: BP 146/100
--- NOTE | 2018-12-20 04:48 | DISCHARGE SUMMARY ---
ADMISSION DATE: 12/13/2018 DISCHARGE DATE: 12/19/2018 DISCHARGE DIAGNOSES: 1. Alcoholic pancreatitis. 2. Alcoholic liver disease. 3. Seizure disorder, probably related to alcohol withdrawal. 4. Supraventricular tachycardia secondary to volume depletion, electrolyte derangement, and beta jihan withdrawal. 5. Hypokalemia. 6. Vitamin D deficiency. DIAGNOSTICS: 1. Chest x-ray revealed atelectasis on the left. 2. CT of the abdomen and pelvis revealed acute pancreatitis, mild thickening of the distal esophageal wall that probably represents esophagitis. Severe hepatic steatosis with a 1.1 cm left hepatic lobe enhancing nodule that very likely represents a flash filling hemangioma. 3. Abdominal ultrasound revealed mild hepatic steatosis. No evidence of acute disease. HOSPITAL COURSE: Mr. Ramirez presented to the emergency room complaining of shortness of breath, palpitations, and abdominal pain, nausea, vomiting. He was found to be in SVT as well as have acute pancreatitis. He was treated with IV hydration, pain and nausea control. His lipase was initially 1530. As it has decreased and his symptoms have resolved, we were able to advance his diet to a soft diet which he tolerated with no abdominal pain, nausea, vomiting. We trended electrolytes and repleted as was appropriate. He was placed on Librium for alcohol withdrawal. Given a PPI, Protonix IV, as well as thiamine and folic acid replacements. He was in sinus tach on 1st admission. Heart rates have slowly decreased and have been 90 to 100 over the last 48 hours. We did review and continue his home medications, as appropriate. DISCHARGE VITAL SIGNS: Blood pressure was 148/90 with a heart rate of 65, respirations 18, temperature is 97.8 degrees oral with room air saturations 100%. DISCHARGE PHYSICAL EXAMINATION: Cardiovascular: Regular rate and rhythm. S1 and S2 appreciated. He has no murmur. He has no lower extremity edema. Calves are nontender bilateral with peripheral pulses palpable x4 extremities. Pulmonary: Breath sounds clear with no increased work of breathing noted. Chest rises and falls symmetrically with respiration. Chest wall nontender to palpation. Gastrointestinal: Abdomen is soft, nontender, nondistended. Bowel sounds in all 4 quadrants. Neurologic: He is alert and oriented x3. DISCHARGE MEDICATIONS: 1. Folic acid 1 mg p.o. daily. 2. Keppra 750 p.o. b.i.d. 3. Metoprolol tartrate 25 mg daily. 4. Gabapentin 100 mg daily. 5. [place] 10 q.6 hours p.r.n. 6. Prilosec 40 mg daily. 7. Vitamin D 50,000 units every 7 days. FOLLOWUP: He is to follow up with Dr. Colón, appointment has been scheduled for December 27 at 1:15 p.m. DISCHARGE DISPOSITION: He has been instructed to call to be seen sooner or return to the emergency room for temperature greater than 101, any syncope, dizziness, chest pain, palpitations, shortness of breath, any recurrence, nausea, vomiting, abdominal pain, any black or bloody vomitus or stools, or for any questions or concerns that he may have. He is being discharged home in stable condition with family members. TIME SPENT: This is a greater than 30 minute discharge. Dictated by GISELA Escobar for Derick Casiano MD This chart was documented by, GISELA Escobar and accurately reflects the services performed, treatment plan and medical decisions as attested by the providers signature Derick Casiano MD. cc: GISELA Escobar MD
== END 2018-12-19 14:17 | disposition home or self-care (01) | DRG 439 ==
LOC: SUPCPDRO → ED 23:13 → EDIPHOLD 12-13 04:14 → SUATTDRO 12-13 04:14 → 3S 12-13 12:57 → 3N 12-16 11:12
PROVIDERS: ATTEND Internal Medicine
CPT/HCPCS: 71010; 71045; 74177; 76700; 80048; 80053; 80074; 82306; 82550; 83605; 83690; 83735; 83880; 84100; 84443; 84484; 85025; 86140; 93005; 93010; 96361; 96365; 96366; 96368; 96372; 96375; 96376; 99285; A9270; C9113; J0780; J1170; J1650; J2060; J2270; J2405; J2560; J2765; J3411; J3480; J7030; J7040; J7050; Q9967; S0164

== ENCOUNTER 2019-02-13 23:15 | Inpatient (IN) ==
[2019-02-13 23:45] LABS: URINE SOURCE CLEAN CATCH
[2019-02-13] MEDS ORDERED: NS 1,000 ML IV ONE (23:48)
[2019-02-13 23:50] LABS: BASO# 0.04 X1000 (0.0-0.2); BASO% 0.4 % (0.0-0.8); BILIRUBIN URINE NEGATIVE (NEGATIVE); BLOOD URINE NEGATIVE (NEGATIVE); COLOR YELLOW; EOS# 0.05 X1000 (0.0-0.7); EOS% 0.6 % (0.0-10.0); GLUCOSE URINE NEGATIVE (NEGATIVE); HEMATOCRIT 41.9 % (42.0-52.0); HEMOGLOBIN 13.8 g/dL (14.0-18.0); KETONE URINE NEGATIVE (NEGATIVE); LEUKOCYTES URINE NEGATIVE (NEGATIVE); LYMPH# 1.13 X1000 (1.2-3.4); LYMPH% 12.6 % (20.5-51.1); MCH 31.3 PG (27-31); MCHC 32.9 g/dL (33-37); MONO# 0.29 X1000 (0.11-0.59); MONO% 3.2 % (1.7-9.3); MPV 10.8 FL (7.4-10.4); NEUT# 7.44 X1000 (1.4-6.5); NEUT% 83.2 % (42.2-75.2); NITRITE URINE NEGATIVE (NEGATIVE); PLT 218 X1000 (130-400); PROTEIN URINE NEGATIVE (NEGATIVE); RBC 4.41 XMIL (4.7-6.1); RDW 12.3 % (11.5-14.5); SP GRAVITY URINE 1.016; TURBIDITY URINE CLEAR (CLEAR); UROBILINOGEN URINE NORMAL (NORMAL); WBC 8.95 X1000 (4.8-10.8)
[2019-02-13 23:52] LABS: UR EPITHELIAL CELLS <10 /HPF (<10); URINE BACTERIA NEGATIVE /HPF; URINE RBC <10 /HPF (<10); URINE WBC <10 /HPF (<10)
[2019-02-13] MEDS ORDERED: TYLENOL PO ONE (23:54)
[2019-02-14 00:16] LABS: ACETAMINOPHEN 9.8 ug/mL (10-30); AGAP 14; ALB/GLOB RATIO 1.4; ALBUMIN 3.9 g/dL (3.5-5.0); ALKALINE PHOSPHATASE 114 U/L (32-122); BUN 10 mg/dL (8-22); CALCIUM 8.7 mg/dL (8.8-10.2); CHLORIDE 105 mmol/L (98-107); COSMO 280; CREATININE 0.8 mg/dL (0.7-1.2); ESTIMATED GFR > 60; GLUCOSE 122 mg/dL (70-104); GOT 47 U/L (10-34); GPT 24 U/L (10-44); LIPASE 15 U/L (13-60); POTASSIUM 3.9 mmol/L (3.5-5.1); SALICYLATES < 3.00 mg/dL (3-10); SODIUM 140 mmol/L (136-145); TCO2 21 mmol/L (25-35); TOTAL BILIRUBIN 1.23 mg/dL (0.20-1.00); TOTAL PROTEIN 6.6 g/dL (6.3-8.3)
[2019-02-14 00:19] LABS: UR AMPHETAMINES QUAL NONE DETECTED (NONE DETECT); UR BARBITUATES QUAL NONE DETECTED (NONE DETECT); UR BENZODIAZEPIN QUAL PRESUMPTIVE POSITIVE (NONE DETECT); UR CANNABINOIDS QUAL NONE DETECTED (NONE DETECT); UR COCAINE QUAL NONE DETECTED (NONE DETECT); UR METHADONE QUAL NONE DETECTED (NONE DETECT); UR OPIATES QUAL PRESUMPTIVE POSITIVE (NONE DETECT); UR OXYCODONE QUAL NONE DETECTED (NONE DETECT); UR PCP QUAL NONE DETECTED (NONE DETECT)
[2019-02-14] MEDS ORDERED: VANCOMYCIN 1 GM/NS 1 GM/250 ML IVPB IV ONE (00:21)
[2019-02-14] MEDS ORDERED: NS 1,000 ML IV ONE (00:21)
[2019-02-14] MEDS ORDERED: ZOSYN 4.5 GM in NS 100 ML IV ONE (00:21)
--- NOTE | 2019-02-14 00:43 | PROVIDER DOCUMENTATION ---
This chart was entered by Reina Finnegan Scribe, acting as scribe for Loretta Cuenca MD. HPI-General Adult - General Chief Complaint: Altered Mental Status Stated Complaint: AMS Time Seen by Provider: 02/13/19 23:37 Source: patient, RN/MD, EMS Allergies/Adverse Reactions: Patient Allergies Allergy/AdvReac Type Severity Reaction Status Date / Time No Known Allergies Allergy Verified 02/13/19 23:33 Home Medications: Home Medication List Medication Instructions Recorded Confirmed Last Taken Type Aspirin/Acetaminophen [[place] 1 each PO PRN PRN 03/20/17 12/13/18 12/12/18 History Body Pain Powder Pkt] Levetiracetam [Keppra] 750 mg PO BID #60 tab 11/07/18 12/13/18 12/12/18 Rx Ergocalciferol (Vitamin D2) 50,000 unit PO Q7D #12 cap 12/19/18 Unknown Rx [Vitamin D] Folic Acid 1 mg PO DAILY #120 tab 12/19/18 Unknown Rx Gabapentin [Neurontin] 100 mg PO BID #60 cap 12/19/18 Unknown Rx Hydrocodone/APAP 10 mg/325 mg 1 ea PO TID PRN PRN 02/14/19 02/14/19 02/13/19 History [[place]-10] Metoprolol Tartrate 25 mg PO DAILY 02/14/19 02/14/19 02/13/19 History Omeprazole [Prilosec] 40 mg PO DAILY 02/14/19 02/14/19 02/13/19 History - History of Present Illness -Gen Adult Nature of Presenting Problems: 63 yo m presents to er w/EMS after being found with AMS. Per EMS pt was nonresponsive on their arrival and they found a bottle of norco in his house so gave him narcan and pt immeidatley awoke and was conversive. Does not recall what happened. On arrival to the ED pt complains of abdominal pain and cough, states he does not recall what happened and states he had a "normal day" prior to waking up with EMS. Denies excessive use of his prescribed pain medications or intentional overdose. No chest pain or headache. Review of Systems - Adult - REVIEW OF SYSTEMS - ADULT Constitutional: reports: no symptoms reported. denies: chills, fever, fatique Eyes: reports: no symptoms reported Ears, Nose, Mouth & Throat: reports: no symptoms reported Cardiovascular: reports: no symptoms reported Respiratory: reports: cough Gastrointestinal: reports: abdominal pain. denies: diarrhea, nausea, vomiting Genitourinary: reports: no symptoms reported Musculoskeletal: reports: no symptoms reported Integumentary: reports: no symptoms reported Neurological: reports: no symptoms reported Psychiatric: reports: see HPI, other (confusion/ams). denies: anxiety, depression, insomnia Endocrine: reports: no symptoms reported Hematologic/Lymphatic: reports: no symptoms reported Allergic/Immunologic: reports: no symptoms reported All Other Systems: Reviewed and Negative Past History - Adult - PAST MEDICAL HISTORY-ADULT Review of Records: reports: Old Records Reviewed, Nursing Assessment Review, Medications Reviewed, Social history reviewed & non-contributory. Major Childhood Illnesses: reports: denies history Cardiovascular: reports: HTN Respiratory: reports: denies history Gastrointestinal: reports: denies history Obstetrical/Gynecological: reports: denies history Genitourinary: reports: denies history Musculoskeletal: reports: denies history Neurological: reports: Seizures/Epilepsy Psychiatric: reports: anxiety Endocrine/Immune: reports: denies history Other Conditions: reports: denies history - PRIOR SURGERIES/PROCEDURES Surgical/Procedure History: reports: orthopedic (extremity) - IMMUNIZATION STATUS Childhood Immunizations: See Nurse Assessment Flu Vaccine: See Nurse Assessment - FAMILY HISTORY Family History: reviewed, not pertinent - SOCIAL HISTORY Smoking: other (former) Substance Use: alcohol Alcohol Use Frequency: every day Physical Exam-General - PHYSICAL EXAM-ADULT Initial Vital Signs Reviewed: Yes - CONSTITUTIONAL General Appearance: alert, mild distress. negative: cachetic, obtunded, combative - EYES Eyes: PERRL/EOMI, pink conjunctivae - HEAD, EARS, NOSE, MOUTH & THROAT HENMT: normocephalic/atraumatic, moist mucous membranes, normal ENT inspection - NECK Neck: non-tender, full range of motion, supple, normal inspection - RESPIRATORY Respiratory: chest non-tender, lungs clear, normal breath sounds - CARDIOVASCULAR Cardiovascular: normal peripheral pulses, no edema, no gallop, no JVD, no murmur , tachycardia. negative: regular rate, rhythm, JVD, bradycardia - GASTROINTESTINAL (ABDOMEN) Abdominal Exam: normal bowel sounds, soft, no organomegaly, no pulsatile mass, tenderness (gen abd tenderness). 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, grossly normal, no motor/sensory deficits - PSYCHIATRIC Psych/Mental Status: normal mood/affect, normal thought content, normal thought process, oriented x 3 Progress - PLAN OF CARE/RESULTS Progress/Plan/Lab Results: Vital Signs - 8 hr 02/13/19 23:15 Temperature 100.5 F H Pulse Rate 147 H Respiratory Rate 24 Blood Pressure 119/87 O2 Sat by Pulse Oximetry 86 L Orders Category Date Time Status IV Insertion ORDERED Care 02/13/19 23:33 Active CHEST-1 VIEW [RAD] Stat Exams 02/13/19 23:33 Ordered ACETAMINOPHEN [TDM] Stat Lab 02/13/19 23:36 Ordered CBC WITH DIFF [HEME] Stat Lab 02/13/19 23:36 Ordered COMPREHENSIVE METABOLIC PANEL [CHEM] Stat Lab 02/13/19 23:36 Ordered LIPASE [CHEM] Stat Lab 02/13/19 23:36 Ordered SALICYLATES [TDM] Stat Lab 02/13/19 23:36 Ordered TROPONIN T Stat Lab 02/13/19 23:36 Ordered URINALYSIS W/POSS RFLX CULT [URINALYSIS] Stat Lab 02/13/19 23:36 Ordered URINE DRUG SCREEN Stat Lab 02/13/19 23:36 Ordered EKG [EKG] Stat Ther 02/13/19 23:16 Ordered resolved AMS with abdominal pain and cough and concern for possible opiate overdose. Pt markedly tachycardic and febrile in the ED concerning for infectious process and sepsis. Treated with IVF and tylenol and will further evaluate for causes including but not limited to pna aspiration, overdose, gastritis, pancreatitis, uti, sepsis Result Diagrams: 02/13/19 23:23 02/13/19 23:23 - REASSESSMENT Reassessment #1 Status: improving (tachcyardia improving reports abdominal pain has resolved nontender on re-exam. awake and alert without signs of sedation. Elevated lactate in setting of infiltate concerning for PNA with sepsis and as initially unresponsive concerning for aspiration. mildly elevated tylenol level, not in toxic range but as question of overdose will repeat 4 hours after arrival. Francesco ated with IVF vanco and zosyn and will admit. Discussed case with Dr. Ba, Hospitalist, who will see and admit pt.) - XRAY 1 XRAY Study: Chest Impression: Abnormal (L ligular infiltrate, marked hiatal hernia, poor ins piratory effort, no ptx) Departure - Departure Date of Disposition Decision: 02/14/19 Time of Disposition Decision: 00:42 DIAGNOSIS: Pneumonia Qualifiers: Pneumonia type: due to unspecified organism Laterality: left Lung location: unspecified part of lung Qualified Code(s): J18.9 - Pneumonia, unspecified organism Sepsis Qualifiers: Sepsis type: sepsis due to unspecified organism Qualified Code(s): A41.9 - Sepsis, unspecified organism Overdose Qualifiers: Encounter type: initial encounter Injury intent: undetermined intent Qualified Code(s): T50.904A - Poisoning by unspecified drugs, medicaments and biological substances, undetermined, initial encounter Disposition: ADMITTED INPATIENT 09 Certified Medical Emergency: Emergent Condition: Fair - Critical Care Note This patient required my direct & personal management of CC.: No Attestation - Physician/ JOSE R Attestation Patient care was provided by Advanced Practice Provider:: No The physician spent face to face time with patient:: Yes Advanced Practice Provider documentation review:: Supervising physician onsite and consulted in the evaluation and care of this patient. The physician did have a face to face encounter with the patient. This chart was documented by the indicated scribe, (Reina Finnegan Scribe) and accurately reflects the services I performed and decisions made by me, Loretta Cuenca MD, as attested by the provider's signature.
[2019-02-14] MEDS ORDERED: NS 500 ML IV ONE ×2 (01:35→04:30)
--- NOTE | 2019-02-14 02:43 | HISTORY AND PHYSICAL ---
PRIMARY CARE PHYSICIAN: Dr. Mendez CHIEF COMPLAINT: Altered mental status and shortness of breath. HISTORY OF PRESENTING ILLNESS: A 63-year-old male with a history of seizure disorder and hypertension, was found by EMS to be altered. He was given Narcan on arrival and he immediately woke up and was conversing. He was brought to the emergency department. He still was somewhat groggy. He had imaging done which did show possibility of pneumonia. Due to these findings, it was thought that he would need admission for further management. The patient is a poor historian. However, he had denied any headache, fever, chills, chest pain, hemoptysis, but complained of shortness of breath and coughing. PAST MEDICAL HISTORY: seizure disorder, hypertension. PAST SURGICAL HISTORY: None. ALLERGIES: No known drug allergies. CURRENT MEDICATIONS: Aspirin 81 mg p.o. daily, folic acid 1 mg p.o. daily, gabapentin 100 mg p.o. b.i.d., Keppra 750 mg p.o. b.i.d., metoprolol 25 mg p.o. daily, omeprazole 40 mg p.o. daily. SOCIAL HISTORY: No history of smoking. Admits to alcohol use. Denies any illicit drug use. FAMILY HISTORY: No history of coronary disease. REVIEW OF SYSTEMS: Fourteen-point review of systems is as in HPI. Other systems negative. PHYSICAL EXAMINATION: GENERAL: Cooperative, friendly male. He is resting more comfortably now. VITAL SIGNS: Temperature 100.5 degrees, pulse 147, respiration 24, blood pressure 119/87. HEENT: Atraumatic, normocephalic. Extraocular movements intact. NECK: No masses. CHEST: Bibasilar rales. CARDIOVASCULAR: Regular rate and rhythm. ABDOMEN: Soft. Positive bowel sounds. EXTREMITIES: No edema. NEUROLOGIC: He is somewhat groggy, however, he responds to questions. GENITOURINARY: No bladder distention. SKIN: Warm. LABORATORIES AND STUDIES: WBCs 8.95, hemoglobin 13.8, hematocrit 49.9, platelets 218,000. Sodium 140, potassium 3.9, chloride 105, CO2 is 21, BUN is 10, creatinine 0.8. Glucose is 122. Chest x- ray shows infiltrates in left lower lobe and lingular region. ASSESSMENT: This is a 63-year-old male with a history of seizures and hypertension, who was brought to the emergency department due to patient being altered. Upon arrival, EMS had given patient Narcan and he responded . He was seen in the emergency department, he had imaging done which did show possibility of pneumonia. Subsequently, he will require admission for further management. 1. Altered mental status. 2. Suspected drug overdose with [place]. 3. Probable pneumonia. 4. Seizure disorder. 5. Hypertension. PLAN: 1. We will admit patient to medical floor with telemetry. 2. Continue with supportive care. 3. We will monitor the patient's neuro status closely. 4. We will check blood cultures and start patient on IV antibiotics. 5. Put patient on seizure precautions. 6. We will monitor blood pressures. Resume antihypertensive agent. 7. We will put patient on DVT prophylaxis, SCDs. 8. We will continue to follow and reassess, and make further recommendations based on his clinical course. cc: Edmundo Ba MD MTDD
[2019-02-14] MEDS ORDERED: ZOFRAN IV PRN (04:12)
[2019-02-14] MEDS ORDERED: NS 1,000 ML IV SCH (04:12)
--- NOTE | 2019-02-14 06:27 | Diag Imaging Result Doc PS360 ---
CHEST-1 VIEW - 02/13/2019 INDICATION: hypoxia COMPARISON: 12/13/2018 FINDINGS: There are new bilateral central infiltrates. Heart size and pulmonary vascularity is somewhat enlarged. No pneumothorax or significant pleural effusion. Stable left hemidiaphragm elevation. IMPRESSION: Bilateral central infiltrates consistent with pulmonary edema and/or pneumonia. Mild cardiomegaly. Electronically signed by Jose Wilkinson 02/14/2019 6:24 AM
[2019-02-14] MEDS: PRILOSEC PO SCH (06:48)
[2019-02-14] MEDS: ZOSYN 3.375 GM in NS 50 ML IV SCH ×3 (07:06→20:20)
--- NOTE | 2019-02-14 07:35 | EKG Report ---
Test Performed on : 02/13/2019 11:18:58 PM Test Reason : AMS Blood Pressure : / mmHG Vent. Rate : 145 BPM Atrial Rate : 145 BPM P-R Int : 086 ms QRS Dur : 070 ms QT Int : 334 ms P-R-T Axes : -10 007 058 degrees QTc Int : 518 ms Sinus tachycardia. with short VA Cannot rule out Inferior infarct , age undetermined Abnormal ECG When compared with ECG of 13-DEC-2018 20:47, VA interval has decreased Nonspecific T wave abnormality, worse in Inferior leads T wave inversion now evident in Anterior leads Unconfirmed Result
[2019-02-14] MEDS: KEPPRA PO SCH ×2 (09:23→20:20)
[2019-02-14] MEDS: NEURONTIN PO SCH ×2 (09:23→20:20)
[2019-02-14] MEDS: FOLIC ACID PO SCH (09:23)
[2019-02-14] MEDS: LOPRESSOR PO SCH (09:24)
--- NOTE | 2019-02-14 12:14 | PROGRESS NOTE ---
DATE: 02/14/2019 SUBJECTIVE: Today, Mr. Ramirez refers to be feeling a little better but he still has moments where he does not remember what happened. He said he was home, and the only thing he knows is that he has found himself here in the hospital. Per the chart, it appears that he became unresponsive at home and somebody called EMS. Upon arrival, the EMS gave him Narcan, and the patient became more awake and was conversational. He was brought to the emergency department where he was still groggy, so he was admitted for altered mental status. This morning his mentation is a lot better. He is more conversational, and he wants some food. OBJECTIVE: His current vitals show blood pressure 93/52, pulse 83, respirations 18, and temperature 99 degrees. The patient was saturating 97%.General: Mr. Ramirez is a 63-year-old gentleman. He is in bed. He is not in any distress. Mucosa is pink and moist. Anicteric. Acyanotic. Neck: Supple. No JVD. Respiratory: Air entry is bilaterally reduced. There is some rhonchi in both posterior lung mena. No wheezing and no crackles. Cardiovascular: Regular rate and rhythm. Abdomen: Soft and nontender. Bowel sounds are present. Extremities: No pedal edema. 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 He moves all extremities. He has bilateral trigger fingers. LABORATORY DATA: 1. None for this morning. 2. A chest x-ray admission did show bilateral central infiltrates consistent with pulmonary edema and/or pneumonia and mild cardiomegaly. ASSESSMENT: 1. Altered mental status on presentation presumably drug related. 2. Chronic opioid use. 3. Acute hypoxemic respiratory failure, most likely due to aspiration pneumonia. 4. Aspiration pneumonitis. Patient is on IV antibiotics. 5. History of seizure disorder. 6. Hypertension controlled. PLAN: This morning Mr. Ramirez is a lot more awake and alert. The story is more consistent with possible [place] overdose. His urine drug screen did show opiates positive and also benzo's positive. He seems to be more alert. We are going to continue with the IV antibiotics. I have discontinued the current fluids. We will get him incentive spirometer, and start him on a regular diet today. Anticipate Mr. Ramirez being discharged within the next 24 to 48 hours. cc: Derick Casiano MD MTDD
[2019-02-15] MEDS: ZOSYN 3.375 GM in NS 50 ML IV SCH ×4 (01:44→20:54)
[2019-02-15] MEDS: PRILOSEC PO SCH (06:56)
[2019-02-15 07:13] LABS: BASO# 0.02 X1000 (0.0-0.2); BASO% 0.1 % (0.0-0.8); EOS% 1.4 % (0.0-10.0); HEMATOCRIT 35.8 % (42.0-52.0); HEMOGLOBIN 11.6 g/dL (14.0-18.0); IMM GRAN# 0.04 X1000 (0.0-0.04); IMM GRAN% 0.3 % (0.0-0.5); LYMPH# 1.88 X1000 (1.2-3.4); LYMPH% 13.4 % (20.5-51.1); MCH 31.3 PG (27-31); MCHC 32.4 g/dL (33-37); MCV 96.5 FL (81-99); MONO# 0.79 X1000 (0.11-0.59); MONO% 5.6 % (1.7-9.3); MPV 11.2 FL (7.4-10.4); NEUT# 11.11 X1000 (1.4-6.5); NEUT% 79.2 % (42.2-75.2); PLT 146 X1000 (130-400); RBC 3.71 XMIL (4.7-6.1); RDW 12.4 % (11.5-14.5); WBC 14.04 X1000 (4.8-10.8)
[2019-02-15 07:39] LABS: AGAP 11; BUN 7 mg/dL (8-22); CALCIUM 8.7 mg/dL (8.8-10.2); CHLORIDE 105 mmol/L (98-107); COSMO 278; CREATININE 0.6 mg/dL (0.7-1.2); ESTIMATED GFR > 60; GLUCOSE 101 mg/dL (70-104); POTASSIUM 3.9 mmol/L (3.5-5.1); SODIUM 140 mmol/L (136-145); TCO2 24 mmol/L (25-35)
[2019-02-15] MEDS ORDERED: VITAMIN D PO SCH (09:00)
[2019-02-15] MEDS: NORCO-10 PO PRN ×3 (09:20→21:45)
[2019-02-15] MEDS: NEURONTIN PO SCH ×2 (09:21→20:55)
[2019-02-15] MEDS: FOLIC ACID PO SCH (09:21)
[2019-02-15] MEDS: KEPPRA PO SCH ×2 (09:22→20:55)
[2019-02-15] MEDS: LOPRESSOR PO SCH (09:22)
--- NOTE | 2019-02-15 18:42 | PROGRESS NOTE ---
DATE: 02/15/2019 SUBJECTIVE: This morning Mr. Ramirez referred to be doing a lot better. He said he has had some headaches but, he is conversational and much alert. OBJECTIVE: Vital signs: Blood pressure was 108/73, pulse of 81, respirations 16, and temperature 97.8 degrees. General: Mr. Ramirez is a 63-year-old male. He was in bed in no distress. HEENT: Mucosa is pink and moist. Anicteric. Acyanotic. Neck: Supple. Chest: Clear to auscultation. No wheezing. No crackles. Cardiovascular: Regular rate and rhythm Abdomen: Soft, nontender. Bowel sounds present. Extremities: No pedal edema. 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 LABORATORY DATA: CBC: WBC is 14.04, hemoglobin is 11.6, and platelet count of 146,000. Chemistry is also reviewed, and is completely normal. So far, blood cultures have been 48 hours negative. IMAGING STUDIES: No imaging studies today. ASSESSMENT: 1. Altered mental status on presentation secondary to drug related encephalopathy improved. 2. Chronic opioid use and abuse. 3. Acute hypoxemic respiratory failure secondary to aspiration pneumonia. Patient is on IV antibiotics, and is currently saturating 97% on room air. 4. Aspiration pneumonitis. The patient is on Zosyn. Today is day 1 of antimicrobial therapy. 5. History of seizure disorder. We will continue with G[place]. The patient has not had any seizures during the hospital course. 6. Hypertension controlled. In general, Mr. Ramirez is doing well. He is more alert. He still feels slightly weak. We will continue with the IV antibiotics. White cell count was slightly elevated today, so we will repeat the labs and repeat a chest x-ray tomorrow. If things are better, I think we will be able to discharge him tomorrow. cc: Derick Casiano MD MTDD
[2019-02-16] MEDS: ZOSYN 3.375 GM in NS 50 ML IV SCH ×4 (01:51→18:51)
[2019-02-16] MEDS: PRILOSEC PO SCH (06:09)
[2019-02-16] MEDS: NORCO-10 PO PRN ×3 (06:12→18:56)
[2019-02-16 07:42] LABS: BASO# 0.02 X1000 (0.0-0.2); BASO% 0.2 % (0.0-0.8); EOS# 0.56 X1000 (0.0-0.7); EOS% 5.3 % (0.0-10.0); HEMATOCRIT 34.5 % (42.0-52.0); HEMOGLOBIN 11.2 g/dL (14.0-18.0); IMM GRAN# 0.02 X1000 (0.0-0.04); IMM GRAN% 0.2 % (0.0-0.5); LYMPH# 1.67 X1000 (1.2-3.4); LYMPH% 15.7 % (20.5-51.1); MCH 30.8 PG (27-31); MCHC 32.5 g/dL (33-37); MCV 94.8 FL (81-99); MONO# 0.75 X1000 (0.11-0.59); MPV 11.6 FL (7.4-10.4); NEUT# 7.64 X1000 (1.4-6.5); NEUT% 71.6 % (42.2-75.2); PLT 164 X1000 (130-400); RBC 3.64 XMIL (4.7-6.1); RDW 12.2 % (11.5-14.5); WBC 10.66 X1000 (4.8-10.8)
--- NOTE | 2019-02-16 07:50 | Diag Imaging Result Doc PS360 ---
CHEST-PORTABLE - 02/16/2019 INDICATION: dyspnea COMPARISON: 02/13/2019 FINDINGS: Stable left hemidiaphragm elevation. Lung volumes are improved. There is improvement in the central infiltrates/pulmonary edema. There is persistent infiltrate at the left lower lobe. Stable cardiomegaly. IMPRESSION: Improved lung volumes and improved pulmonary edema. Electronically signed by Jose Wilkinson 02/16/2019 7:48 AM
[2019-02-16 08:07] LABS: AGAP 10; ALB/GLOB RATIO 0.9; ALKALINE PHOSPHATASE 97 U/L (32-122); BUN 5 mg/dL (8-22); CALCIUM 8.6 mg/dL (8.8-10.2); CHLORIDE 105 mmol/L (98-107); COSMO 277; CREATININE 0.5 mg/dL (0.7-1.2); ESTIMATED GFR > 60; GLUCOSE 106 mg/dL (70-104); GOT 41 U/L (10-34); GPT 21 U/L (10-44); POTASSIUM 3.8 mmol/L (3.5-5.1); SODIUM 140 mmol/L (136-145); TCO2 25 mmol/L (25-35); TOTAL BILIRUBIN 1.17 mg/dL (0.20-1.00); TOTAL PROTEIN 6.2 g/dL (6.3-8.3)
[2019-02-16] MEDS ORDERED: SOLU-MEDROL IV ONE (09:22)
[2019-02-16] MEDS: DUONEB (A & A) INH SCH ×4 (11:21→23:35)
--- NOTE | 2019-02-16 11:31 | PROGRESS NOTE ---
DATE: 02/16/2019 SUBJECTIVE: This morning, Mr. Ramirez refers to be coughing a whole lot and has some wheezing. OBJECTIVE: Vital signs: Blood pressure is 143/84, pulse of 83, respirations 20, temperature is 98.7 degrees. Patient was saturating about 97% on room air. General: Mr. Ramirez is a 63-year- old gentleman. He was in bed. Did not seem to be in any cardiopulmonary distress. HEENT: Mucosa is pink and moist. Anicteric. Acyanotic. Neck: Supple. Respiratory system: Air entry was bilaterally reduced. There is some faint end expiratory wheezing bilaterally but no rhonchi, no crackles. Cardiovascular: Regular rate and rhythm. No murmurs, no rubs, no gallops. Central nervous system: Patient is awake, alert, and oriented. LABORATORY DATA: CBC is 10.66, hemoglobin is 11.2, platelet count of 164,000. Chemistry is also reviewed, all completely normal. IMAGING: A chest x-ray this morning shows improved lung volumes and improved pulmonary edema. There is persistent infiltrate at the left lower lobe. ASSESSMENT: 1. Altered mental status on presentation secondary to drug-related encephalopathy, improved. 2. Chronic opioid use and abuse. Patient has been counseled. 3. Acute hypoxemic respiratory failure on presentation, resolved. 4. Aspiration pneumonitis with bronchospasm. The patient is on IV antibiotics, today is day 2. This morning he was having some more wheezing, so we are going to give him some nebulization and shot of steroids to see if that will help. 5. History of seizure disorder. Patient is on Keppra. No seizures during the hospital course. 6. Hypertension, controlled. PLAN: So in general, this morning Mr. Ramirez is doing fairly okay but continues to be bronchospastic. We are going to nebulize him, give him a shot of steroids, continue with the IV antibiotics and re-evaluate him later on today. cc: Derick Casiano MD
[2019-02-16] MEDS: KEPPRA PO SCH ×2 (12:20→22:10)
[2019-02-16] MEDS: FOLIC ACID PO SCH (12:21)
[2019-02-16] MEDS: LOPRESSOR PO SCH (12:21)
[2019-02-16] MEDS: NEURONTIN PO SCH ×2 (12:21→22:14)
[2019-02-16] MEDS: ROBITUSSIN-AC PO PRN ×2 (12:56→18:51)
[2019-02-16] MEDS: SOLU-MEDROL IV SCH (13:14)
[2019-02-17] MEDS: ZOSYN 3.375 GM in NS 50 ML IV SCH ×4 (02:17→20:40)
[2019-02-17] MEDS: DUONEB (A & A) INH SCH ×2 (02:55→08:05)
[2019-02-17] MEDS: PRILOSEC PO SCH (06:02)
[2019-02-17] MEDS: NORCO-10 PO PRN ×3 (06:20→20:38)
[2019-02-17] MEDS: FOLIC ACID PO SCH (08:41)
[2019-02-17] MEDS: KEPPRA PO SCH ×2 (08:41→20:39)
[2019-02-17] MEDS: SOLU-MEDROL IV SCH (08:41)
[2019-02-17] MEDS: LOPRESSOR PO SCH (08:41)
[2019-02-17] MEDS: NEURONTIN PO SCH ×2 (08:41→20:38)
--- NOTE | 2019-02-17 10:14 | PROGRESS NOTE ---
DATE: 02/17/2019 SUBJECTIVE: This morning, Mr. Ramirez refers to be still coughing and feeling weak. He was concerned about the fact that it has been documented that he had abused prescription drugs at the time of admission. He said he normally only takes what is prescribed for him and that his takes Xanax and he is not sure if the accidentally might have added Xanax to his medication and that is why he became confused. OBJECTIVELY: Vitals: Current vitals, blood pressure is 139/89, pulse of 60, respiration is 18, temperature 97.7 degrees. General: Mr. Ramirez is a 63-year-old male. He is in bed. He is not in any cardiopulmonary distress. HEENT: Mucosa is pink and moist. Anicteric and acyanotic. Neck: Supple. Chest: Air entry is bilaterally reduced. There is still some expiratory mild wheezing. There is prolonged expiratory phase of respiration. Cardiovascular: Regular rate and rhythm. Abdomen: Soft, nontender. Bowel sounds present. 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 LABORATORY DATA: None for today. ASSESSMENT: 1. Altered mental status on presentation secondary to drug-related encephalopathy, resolved. 2. Chronic opioid use and abuse. Patient has been counseled. 3. Acute hypoxemic respiratory failure on presentation, resolved. 4. Aspiration pneumonitis with bronchospasm. Patient is currently on antibiotics. Today is day 3. There is still some wheezing going on. He is on steroids, bronchodilation therapy. We are going to get a sputum sample for Gram stain and culture. 5. History of seizure disorder. Patient is on Keppra. No seizure during the hospital course. 6. Hypertension, controlled. So today, Mr. Cooley continues to be bronchospastic. We will continue with the current treatment. We will repeat the labs and repeat a chest x-ray tomorrow morning and go from there. cc: Derick Casiano MD MTDD
[2019-02-17] MEDS: DUONEB (A & A) INH PRN ×3 (12:01→19:27)
[2019-02-18] MEDS: ZOSYN 3.375 GM in NS 50 ML IV SCH ×3 (01:32→14:00)
[2019-02-18 04:53] LABS: BLOOD TYPE ARTERIAL; SAMPLE BLOOD
[2019-02-18 04:54] LABS: ALLEN TEST YES; HCO3-(ACT) 24.9 mmoll (20.0-26.0); METHB 1.2 % (0.0-1.5); O2(CT) 15.7 mL/dL (15.0-23.0); O2HB 93.9 % (95.0-99.0); PCO2(98.6) 34 mmHg (35-45); PO2(98.6) 69 mmHg (60-100); SAO2 96.9 % (95.0-100.0); THB 11.9 g/dL (11.5-17.4); pH(98.6) 7.45 (7.35-7.45)
[2019-02-18 04:55] LABS: MODALITY ROOM AIR
[2019-02-18 06:41] LABS: BASO# 0.03 X1000 (0.0-0.2); BASO% 0.3 % (0.0-0.8); EOS# 0.04 X1000 (0.0-0.7); EOS% 0.4 % (0.0-10.0); HEMATOCRIT 35.8 % (42.0-52.0); HEMOGLOBIN 11.8 g/dL (14.0-18.0); IMM GRAN# 0.09 X1000 (0.0-0.04); LYMPH# 2.36 X1000 (1.2-3.4); LYMPH% 26.5 % (20.5-51.1); MCH 31.2 PG (27-31); MCV 94.7 FL (81-99); MONO# 0.75 X1000 (0.11-0.59); MONO% 8.4 % (1.7-9.3); MPV 10.4 FL (7.4-10.4); NEUT# 5.65 X1000 (1.4-6.5); NEUT% 63.4 % (42.2-75.2); PLT 209 X1000 (130-400); RBC 3.78 XMIL (4.7-6.1); RDW 12.1 % (11.5-14.5); WBC 8.92 X1000 (4.8-10.8)
[2019-02-18] MEDS: NORCO-10 PO PRN ×2 (06:54→15:05)
[2019-02-18] MEDS: PRILOSEC PO SCH (06:55)
[2019-02-18 07:06] LABS: AGAP 7; ALBUMIN 3.4 g/dL (3.5-5.0); BUN 7 mg/dL (8-22); CALCIUM 9.1 mg/dL (8.8-10.2); CHLORIDE 108 mmol/L (98-107); COSMO 286; CREATININE 0.7 mg/dL (0.7-1.2); ESTIMATED GFR > 60; GLUCOSE 89 mg/dL (70-104); POTASSIUM 3.8 mmol/L (3.5-5.1); SODIUM 145 mmol/L (136-145); TCO2 30 mmol/L (25-35)
[2019-02-18 07:41] VITALS: BP 161/92
--- NOTE | 2019-02-18 08:51 | Diag Imaging Result Doc PS360 ---
CHEST-2 VIEWS - 02/18/2019 INDICATION: hypoxia COMPARISON: 02/16/2019 FINDINGS: Stable significant left hemidiaphragm elevation. There has been significant improvement in the left basilar infiltrate, with some slight residual infiltrate here. The right lung remains clear. Heart size and pulmonary vascularity are top normal. No pleural effusions. IMPRESSION: Significant improvement in the left basilar infiltrate. Electronically signed by Jose Wilkinson 02/18/2019 8:48 AM
[2019-02-18] MEDS: LOPRESSOR PO SCH (10:47)
[2019-02-18] MEDS: KEPPRA PO SCH (10:47)
[2019-02-18] MEDS: NEURONTIN PO SCH (10:47)
[2019-02-18] MEDS: FOLIC ACID PO SCH (10:48)
[2019-02-18] MEDS: SOLU-MEDROL IV SCH (10:49)
--- NOTE | 2019-02-18 22:40 | DISCHARGE SUMMARY ---
ADMISSION DATE: 02/14/2019 DISCHARGE DATE: 02/18/2019 DISPOSITION: Home. FOLLOWUP: 1. Dr. Jose Hopson. 2. Dr. Cantu for pain management. ADMISSION DIAGNOSES: 1. Altered mental status. 2. Suspected drug overdose. 3. Probable pneumonia. 4. Seizure disorder. 5. Hypertension. DISCHARGE DIAGNOSES: 1. Altered mental status on presentation secondary to drug related encephalopathy. 2. Chronic opioid use and abuse. Patient has been counseled. 3. Acute hypoxemic respiratory failure on presentation, resolved. 4. Aspiration pneumonitis with bronchospasm, improved. Subsequent blood cultures have significantly improved. 5. History of seizure disorder. No seizure activity during the hospital course. 6. Hypertension controlled. 7. Chronic pain syndrome under Dr. Cantu's care. 8. Chronic constipation secondary to opioid use. DISCHARGE MEDICATIONS: 1. Keppra 750 b.i.d. 2. Folic acid 1 mg daily. 3. Vitamin D 50,000 weekly. 4. Neurontin 100 mg b.i.d. 5. [place] 10 mg 3 times per day p.r.n. 6. Metoprolol 25 mg b.i.d. 7. Omeprazole 40 mg p.o. daily. 8. Colace 100 mg b.i.d. PRESENTING COMPLAINT: Altered mental status and shortness of breath. HISTORY OF PRESENT COMPLAINT: Mr. Ramirez is a 63-year-old, gentleman, who is known to have seizure disorder, hypertension, chronic pain on chronic opioid medication. Was brought to the emergency department because of altered mental status. The patient was found to have a urine drug screen positive for opioid and also benzodiazepine. According to him, he does not take any benzodiazepines. However, the urine was positive. Mr. Ramirez also had some issues with breathing. An initial chest x-ray did reveal bilateral central infiltrates consistent with pulmonary edema and/or pneumonia. We thought he might have aspirated during the episode when he became altered. Mr. Ramirez was subsequently admitted for further medical treatment. HOSPITAL COURSE: Mr. Ramirez was admitted to the medical floor under telemonitoring. Was observed with q.4 to q.6 neuro checks and was started on IV antibiotics. Through the hospital course, he did improve. His breathing got better. Antibiotics were titrated and he also benefitted from respiratory therapy care. His blood cultures came back negative. His sputum also was unremarkable. His wheezing all got better. His chest x-ray this morning shows significant improvement in the left basilar infiltrates and the right lung remains clear. We think Mr. Ramirez is now clinically stable for discharge. He is going to follow up with Dr. Jose Hopson. All his discharge instructions have been discussed with him. We did stress the importance of being extremely careful with his pain medications because we think his presenting symptoms, which was the altered mental status was drug induced and it could have been overdose of his medication. The patient was pretty adamant that he did not overdose on his medications and also he said he does not take any Xanax, it is his who takes the Xanax, but for some reason, his urine toxicology was positive in any way for benzodiazepines. All the discharge instructions have been discussed with him. He voiced understanding. TIME SPENT: For discharge is 36 minutes. cc: MD Dr JOSE Hu READ Dr. Cantu
== END 2019-02-18 16:35 | disposition home or self-care (01) | DRG 917 ==
LOC: ED 23:15 → 4N 02-14 04:35 → SUATTDRO 02-14 04:35
PROVIDERS: ATTEND Internal Medicine
CPT/HCPCS: 71010; 71020; 71045; 71046; 80048; 80053; 80069; 80101; 80196; 80301; 80307; 80324; 80329; 80345; 80346; 80353; 80358; 80361; 80365; 81001; 82003; 82805; 82948; 83605; 83690; 83992; 84484; 85025; 87040; 87070; 87205; 93005; 94640; 94761; 96361; 96365; 96367; 99285; A9270; G0431; G0434; G0479; G0480; G6038; G6039; J2543; J2920; J3370; J7030; J7040; XXXXX

== ENCOUNTER 2019-03-11 05:24 | Inpatient (IN) ==
--- NOTE | 2019-03-06 11:11 | EKG Report ---
Test Performed on : 03/06/2019 10:53:49 AM Test Reason : PAT Blood Pressure : / mmHG Vent. Rate : 068 BPM Atrial Rate : 068 BPM P-R Int : 160 ms QRS Dur : 076 ms QT Int : 400 ms P-R-T Axes : 021 009 029 degrees QTc Int : 425 ms Normal sinus rhythm. Normal ECG When compared with ECG of 13-FEB-2019 23:18, (Unconfirmed) Vent. rate has decreased BY 77 BPM Minimal criteria for Inferior infarct are no longer present ST no longer depressed in Anterior leads Nonspecific T wave abnormality, improved in Inferior leads T wave inversion no longer evident in Anterior leads Confirmed by Juani BONNER, Shaji Quiroz ([id number]) on 03/06/2019 3:28:07 PM
[2019-03-08 14:38] LABS: BASO# 0.05 X1000 (0.0-0.2); BASO% 0.7 % (0.0-0.8); EOS# 0.31 X1000 (0.0-0.7); EOS% 4.4 % (0.0-10.0); HEMATOCRIT 38.4 % (42.0-52.0); HEMOGLOBIN 12.3 g/dL (14.0-18.0); MCH 30.6 PG (27-31); MCV 95.5 FL (81-99); MONO% 11.4 % (1.7-9.3); MPV 9.9 FL (7.4-10.4); NEUT# 2.34 X1000 (1.4-6.5); NEUT% 33.5 % (42.2-75.2); PLT 236 X1000 (130-400); RBC 4.02 XMIL (4.7-6.1); RDW 12.8 % (11.5-14.5)
[2019-03-11] MEDS ORDERED: INVANZ 1 GM/NS 1 GM/50 ML IVPB ONE (06:00)
[2019-03-11] MEDS ORDERED: REGLAN ONE (06:00)
[2019-03-11] MEDS ORDERED: LR 1,000 ML ONE ×3 (06:00→11:21)
[2019-03-11] MEDS ORDERED: PEPCID ONE (06:00)
[2019-03-11] MEDS ORDERED: LOPRESSOR ONE (06:01)
[2019-03-11] MEDS ORDERED: DIPRIVAN 1% ONE (06:12)
[2019-03-11] MEDS ORDERED: XYLOCAINE-MPF 2% ONE (06:12)
[2019-03-11] MEDS ORDERED: VERSED ONE (06:12)
[2019-03-11] MEDS ORDERED: FENTANYL ONE (06:13)
[2019-03-11] MEDS ORDERED: SODIUM CHLORIDE 0.9% 10 ML ONE ×2 (06:13→06:54)
[2019-03-11] MEDS ORDERED: NORCURON ONE (06:13)
[2019-03-11] MEDS ORDERED: MARCAINE 0.25% ONE (06:54)
[2019-03-11] MEDS ORDERED: EXPAREL 1.3% ONE (06:55)
[2019-03-11] MEDS ORDERED: EPHEDRINE ONE (07:19)
[2019-03-11] MEDS ORDERED: ZOFRAN ONE (07:35)
[2019-03-11] MEDS ORDERED: DECADRON ONE (07:35)
[2019-03-11] MEDS ORDERED: OFIRMEV 1000 MG/ISOTONIC SOLN 1,000 MG/100 ML BOTTLE ONE (07:44)
[2019-03-11] MEDS ORDERED: NEOSTIGMINE ONE (07:52)
[2019-03-11] MEDS ORDERED: ROBINUL ONE (07:52)
[2019-03-11 08:38] LABS: URINE SOURCE CATH
[2019-03-11 08:40] LABS: BILIRUBIN URINE NEGATIVE (NEGATIVE); BLOOD URINE SMALL (NEGATIVE); COLOR ORANGE; GLUCOSE URINE NEGATIVE (NEGATIVE); KETONE URINE TRACE mg/dL (NEGATIVE); LEUKOCYTES URINE TRACE (NEGATIVE); NITRITE URINE NEGATIVE (NEGATIVE); PH URINE 5.5; PROTEIN URINE 100 mg/dL (NEGATIVE); SP GRAVITY URINE 1.024; TURBIDITY URINE HAZY (CLEAR); UROBILINOGEN URINE 2 mg/dL (NORMAL)
[2019-03-11 08:43] LABS: UR EPITHELIAL CELLS >10 /HPF (<10); URINE BACTERIA NEGATIVE /HPF
[2019-03-11 08:52] LABS: URINE CASTS GRANULAR PRESENT; URINE YEAST NONE SEEN
[2019-03-11] MEDS: DILAUDID ONE ×4 (11:00→11:19)
[2019-03-11] MEDS ORDERED: ULTRAM PO PRN (12:05)
[2019-03-11] MEDS: ULTRAM PO PRN ×2 (12:15→18:25)
[2019-03-11] MEDS: LR 1,000 ML IV SCH (13:35)
[2019-03-11] MEDS: OFIRMEV 1000 MG/ISOTONIC SOLN 1,000 MG/100 ML BOTTLE IV SCH ×2 (13:45→18:36)
[2019-03-11] MEDS ORDERED: MORPHINE IV ONE (16:47)
--- NOTE | 2019-03-11 16:58 | OPERATIVE NOTE ---
PROCEDURE DATE: 03/11/2019 PREOP DIAGNOSIS: Sigmoid colon cancer. POSTOP: Sigmoid colon cancer. PROCEDURE PERFORMED: Robot-assisted laparoscopic low anterior resection. MACHINE SPECIALIST: Dr. Garrison present for creation of the end-to-end anastomosis. SPECIMEN: Sigmoid colon. ANESTHESIA: General with TAP block. ESTIMATED BLOOD LOSS: 100 mL. INDICATION: A 63-year-old gentleman who had a polyp in the sigmoid colon is removed, had high- grade dysplasia with focal areas of invasive carcinoma. FINDINGS: No evidence of metastatic disease. There was a tattoo lesion approximately the end the distal sigmoid. OPERATIVE NOTE: Risks, benefits and alternatives discussed patient, he consented procedure, seen preoperatively, surgical site was confirmed. He was taken operating room placed supine position, general anesthesia induced. A TAP block was performed by Anesthesia. For details, please see their operative record. Hair was removed with clippers. Bean catheter was placed. Abdomen prepped chlorhexidine solution after he was placed in lithotomy confirmed that all bony prominences padded. After time-out made a supraumbilical midline incision approximately 20 cm from the pubic symphysis carried this down through the fascia, incised the fascia and entered the abdomen open controlled fashion. A 12 mm camera trocar was placed and the abdomen was insufflated. We placed him in Trendelenburg slight right side down. A stapler port was placed between the ASIS and umbilicus and then placed 2 additional robotic trocars hand's breadth from the camera laterally with the most lateral being just above the reflection of the colon. Drug Department Worker trocar was placed in the right upper quadrant. We mobilized small bowel out the pelvis packing it away and introduced a small laparotomy pad in the abdomen to help with exposure. The robot was then docked. We started in the medial lateral dissection identifying the pedicle as it entered here and highly dissected this out scoring the mesentery in the mesorectum along the right lateral aspect. We did identify the right ureter and protected it. After our medial lateral dissection we then identified the left ureter. Circumferentially dissected out the vessel using LigaSure device divided these noting hemostasis. We then continued our medial lateral dissection distally and then started our lateral mobilization completing this circumferentially. We selected area of the proximal colon, it seemed to have good perfusion and selected our transection area distal the tattoo. We mobilized the rectum down to just rectum using a green load robotic stapler divided distally. At this point we made a left lower quadrant specimen extraction site, placed an Apolinar wound protector, brought the colon out through this but prior to doing this we did our Firefly perfusion test and noted that even after taking the mesenteric vessels there was good collateral perfusion of all segments. Pursestring device was fired through our left lower quadrant extraction site and the specimen was removed and passed off. There was no spillage of stool. We had a grossly greater than 7 cm margin proximally and distally to the tattoo with a high lymphadenectomy. A 28 mm EEA anvil was placed. The pursestring was secured and we did have to imbricate a diverticula here but we were able do this successfully. Epiploic appendages were mobilized off placed back and abdomen re-insufflated. Dr. Garrison passed the 28 mm stapler and we created an end-to-end anastomosis there was 2 intact donuts. There was no tension whatsoever. We did have a wide mobilization descending colon. An underwater leak test was performed. There was no leaking but with good distention of the colon. We confirmed hemostasis, placed small bowel back in neutral position, desufflated the abdomen, our laparotomy pad was also brought out of the abdomen. We closed the left lower quadrant specimen extraction site with a posterior layer being closed with 0 Vicryl and the anterior layer being closed with a 0 PDS suture. Our other 12 mm trocars were placed with interrupted Vicryl sutures. Skin was closed 4-0 Monocryl. Dermabond was applied. Counts correct. He was woken, transferred to recovery. Bean catheter was continued. Urine was clear throughout the case. cc: Harini Ang MD
[2019-03-11] MEDS ORDERED: MORPHINE ONE (17:01)
[2019-03-11] MEDS: KEPPRA PO SCH (22:12)
[2019-03-11] MEDS: NEURONTIN PO SCH (22:12)
[2019-03-11] MEDS: PERIDEX MT SCH (22:12)
[2019-03-12] MEDS: ULTRAM PO PRN ×2 (00:40→06:44)
[2019-03-12] MEDS: OFIRMEV 1000 MG/ISOTONIC SOLN 1,000 MG/100 ML BOTTLE IV SCH ×2 (00:40→06:43)
[2019-03-12 06:44] LABS: BASO# 0.01 X1000 (0.0-0.2); BASO% 0.1 % (0.0-0.8); EOS# 0.01 X1000 (0.0-0.7); EOS% 0.1 % (0.0-10.0); HEMATOCRIT 38.7 % (42.0-52.0); IMM GRAN# 0.02 X1000 (0.0-0.04); IMM GRAN% 0.2 % (0.0-0.5); LYMPH# 2.77 X1000 (1.2-3.4); LYMPH% 29.4 % (20.5-51.1); MCH 30.7 PG (27-31); MCHC 33.6 g/dL (33-37); MCV 91.3 FL (81-99); MONO# 0.84 X1000 (0.11-0.59); MONO% 8.9 % (1.7-9.3); MPV 10.6 FL (7.4-10.4); NEUT# 5.77 X1000 (1.4-6.5); NEUT% 61.3 % (42.2-75.2); PLT 213 X1000 (130-400); RBC 4.24 XMIL (4.7-6.1); RDW 12.6 % (11.5-14.5); WBC 9.42 X1000 (4.8-10.8)
[2019-03-12 07:04] LABS: AGAP 10; BUN 7 mg/dL (8-22); CALCIUM 9.2 mg/dL (8.8-10.2); CHLORIDE 106 mmol/L (98-107); COSMO 279; CREATININE 0.6 mg/dL (0.7-1.2); ESTIMATED GFR > 60; GLUCOSE 93 mg/dL (70-104); POTASSIUM 3.9 mmol/L (3.5-5.1); SODIUM 141 mmol/L (136-145); TCO2 25 mmol/L (25-35)
[2019-03-12] MEDS: LR 1,000 ML IV SCH ×2 (08:22→11:01)
[2019-03-12] MEDS: NEURONTIN PO SCH ×2 (10:21→20:38)
[2019-03-12] MEDS: PRILOSEC PO SCH (10:21)
[2019-03-12] MEDS: KEPPRA PO SCH ×2 (10:21→20:37)
[2019-03-12] MEDS: MAG-OX PO SCH (10:21)
[2019-03-12] MEDS: LOPRESSOR PO SCH (10:22)
[2019-03-12] MEDS: LOVENOX SUBQ SCH (10:22)
[2019-03-12] MEDS: PERIDEX MT SCH ×2 (10:22→20:38)
[2019-03-12] MEDS: NORCO-10 PO PRN ×4 (10:57→22:32)
[2019-03-12] MEDS: ROBAXIN 1,000 MG in NS 50 ML IV SCH ×2 (10:57→18:37)
--- NOTE | 2019-03-12 13:41 | GENERAL SURGERY PROGRESS NOTE ---
DATE: 03/12/2019 SUBJECTIVE: Doing okay, complaining about some pain and dysuria. No fevers, no tachycardia overnight. OBJECTIVE: Urine output was adequate. Abdomen is soft. Incisions are intact. LABORATORY DATA: White count 9, hematocrit 38. Creatinine is 0.6. ASSESSMENT AND PLAN: Given his dysuria related to the catheter, we will remove his Bean today. He does not have any urinary retention symptoms. I started back [place]. He is on his other home medication. I have decreased his IV fluids to 50, adding Robaxin. I have encouraged to be out of bed and ambulate. He has his Lovenox this morning. He has SCDs in place as well as a PPI. We will continue per the ERAS pathway. cc: Harini Ang MD
[2019-03-12] MEDS: ZOFRAN IV PRN ×2 (14:09→18:40)
[2019-03-12] MEDS: DILAUDID ONE (22:34)
[2019-03-13] MEDS: ROBAXIN 1,000 MG in NS 50 ML IV SCH ×3 (02:33→17:42)
[2019-03-13] MEDS: LR 1,000 ML IV SCH (02:33)
[2019-03-13] MEDS: NORCO-10 PO PRN ×6 (02:33→22:32)
[2019-03-13] MEDS: KEPPRA PO SCH ×2 (10:06→20:25)
[2019-03-13] MEDS: LOVENOX SUBQ SCH (10:07)
[2019-03-13] MEDS: NEURONTIN PO SCH ×2 (10:07→20:26)
[2019-03-13] MEDS: PRILOSEC PO SCH (10:07)
[2019-03-13] MEDS: LOPRESSOR PO SCH (10:07)
[2019-03-13] MEDS: PERIDEX MT SCH ×2 (10:07→20:25)
[2019-03-13] MEDS: MAG-OX PO SCH (10:08)
[2019-03-13] MEDS: ZOFRAN IV PRN (10:10)
--- NOTE | 2019-03-13 19:39 | GENERAL SURGERY PROGRESS NOTE ---
DATE: 03/13/2019 SUBJECTIVE: He is doing very well. He had return of bowel function. No fevers. Pain is controlled with [place]. OBJECTIVE: No tachycardia. Blood pressure has been systolics 130s for the most part, up to 150. Generally he is alert. Abdomen is soft. Incisions are intact. LABORATORY DATA: No new labs yet this morning. ASSESSMENT AND PLAN: A 63-year-old gentleman status post low anterior resection for sigmoid colon cancer. He is doing well. We will continue to advance him. He is voiding with his Bean out. He is on proton pump inhibitor. He is on Lovenox and his appropriate home medications. Continue [place] for pain. cc: Harini Ang MD
[2019-03-14] MEDS: NORCO-10 PO PRN ×4 (02:38→14:00)
[2019-03-14] MEDS: ROBAXIN 1,000 MG in NS 50 ML IV SCH ×2 (02:39→10:19)
[2019-03-14] MEDS: PERIDEX MT SCH (08:11)
[2019-03-14] MEDS: KEPPRA PO SCH (08:11)
[2019-03-14] MEDS: PRILOSEC PO SCH (08:12)
[2019-03-14] MEDS: LOPRESSOR PO SCH (08:12)
[2019-03-14] MEDS: LOVENOX SUBQ SCH (08:12)
[2019-03-14] MEDS: NEURONTIN PO SCH (08:12)
[2019-03-14] MEDS: MAG-OX PO SCH (08:12)
[2019-03-14 13:13] VITALS: BP 114/86
--- NOTE | 2019-03-15 15:32 | DISCHARGE SUMMARY ---
ADMISSION DATE: 03/11/2019 DISCHARGE DATE: 03/14/2019 PREOPERATIVE DIAGNOSIS: Sigmoid colon cancer. POSTOPERATIVE DIAGNOSIS: Sigmoid colon cancer. PROCEDURE PERFORMED: Robot-assisted laparoscopic low anterior resection. HISTORY OF PRESENT ILLNESS: This 63-year-old gentleman is found to have a sigmoid colon polyp with high-grade dysplasia and invasive carcinoma. HOSPITAL COURSE: The patient was taken to the operating room on 03/11/2019 for above procedure. For details, please see dictated operative note. Postoperatively, he did well. He had return of bowel function by day 2. Bean was removed on day 1. He is able to void. He is on prophylactic Lovenox and PPI. Pain is controlled with [place]. He was able to ambulate and tolerate a diet. It was felt safe for discharge. Follow up with me early next week. Disposition home to self-care. Discharge instructions were given in written and verbal format. Medications: He will continue [place] that he takes chronically for pain, as well as additional home medications. Pathology is pending at time of surgery. cc: Harini Ang MD
== END 2019-03-14 16:16 | disposition home or self-care (01) | DRG 331 ==
LOC: SURHOLD 05:24 → 4N 11:57
PROVIDERS: ADMIT Surgery; ATTEND Surgery
CPT/HCPCS: 80048; 81001; 85025; 86850; 86900; 86901; 86920; 87088; 88309; 93005; 93010; 94761; 94799; 97162; 97530; A9270; C9290; J0131; J1100; J1170; J1335; J1650; J2250; J2270; J2405; J2800; J3010; J7120; S0020; S2900